=== PATIENT | female | born 1985 | race African-American/Black ===

== ENCOUNTER 2016-10-23 14:10 | Outpatient (CLI) | payer OTHER ==
[~2016-10-23] VITALS: Ht 162.6 cm; Wt 78.0 kg
[2016-10-23 14:33] VITALS: BP 101/56
[2016-10-23 15:32] VITALS: BP 103/63
--- NOTE | 2016-10-23 15:51 | IPNPDOC ---
Text Note Date of Service The patient was seen on 10/23/16 at 15:51. NOTE Subjective: Debbi is a 30yo with a woods IUP at 37w5d presenting to triage c/o cramping and spotting. She states she has had low abdominal cramping associated with abdominal tightening off and on since yesterday. She also notes increased discharge that today has become bloody, brownish, scant. ROS: Admits: adequate hydration, good movement Denies: fever, chills, loss of fluid, urinary symptoms Objective: VSS NST: FHT 140 with moderate variability, +accels, possible variable decel. Reactive NST. Regan: occasional ctx Physical Exam: General: WDWN gravid female in NAD Mental: A&Ox3 Abdomen: Gravid abdomen without tenderness in any quadrant. SCE (RN as business line controller) closed/50/-3 Assessment: Debbi is a 30yo with a woods IUP at 37w5d with no evidence of latent or active labor. Reassuring status with reactive NST with occasional CTXs. Plan: -f/u as scheduled in centering later this week -encouraged adequate hydration -Discussed labor precautions -return to L&D triage for any concerns -Medical reconciliation reviewed Dr. Beba Villagomez MD Staff Physician, Opal ARIAS, I+O Opal ALEMAN I+O Vital Signs Date Time Temp Pulse Resp B/P Pulse Ox O2 Delivery O2 Flow Rate FiO2 10/23/16 15:32 81 20 103/63 10/23/16 14:33 96.6 Room Air BEBA VILLAGOMEZ MD Oct 23, 2016 15:51
== END 2016-10-23 15:30 | disposition home or self-care (01) ==
LOC: M LDO 14:10
PROVIDERS: ATTEND Obstetrics & Gynecology
DX: O26.853 Spotting complicating pregnancy, third trimester (principal); Z3A.37 37 weeks gestation of pregnancy; N89.8 Other specified noninflammatory disorders of vagina; O26.893 Other specified pregnancy related conditions, third trimester

== ENCOUNTER 2016-10-25 07:37 | Outpatient (CLI) | payer OTHER ==
[~2016-10-25] VITALS: Ht 162.6 cm; Wt 77.0 kg
[2016-10-25] MEDS ORDERED: PRENTAB9 PO (08:52)
[2016-10-25] MEDS ORDERED: ACET50TA PO (08:52)
[2016-10-26] MEDS ORDERED: PRENTAB9 PO (00:57)
== END 2016-10-25 10:42 | disposition home or self-care (01) ==
LOC: M LDO 07:37
PROVIDERS: ATTEND Obstetrics & Gynecology
DX: O47.1 False labor at or after 37 completed weeks of gestation (principal); Z3A.38 38 weeks gestation of pregnancy

== ENCOUNTER 2016-10-26 | Inpatient (IN) | payer OTHER ==
[~2016-10-26] VITALS: Ht 162.6 cm; Wt 78.0 kg
[2016-10-26] VITALS (44 sets, daily range): BP systolic 94–127; BP diastolic 50–72
[~2016-10-26] MED LIST: ACET50TA PO; PRENTAB9 PO
[2016-10-26] MEDS ORDERED: PRENTAB9 PO (00:57)
[2016-10-26] MEDS ORDERED: LR 1,000 ML IV SCH ×2 (00:59→06:45)
[2016-10-26 01:07] LABS: MEAN CORPUSCULAR HEMOGLOBIN 26.5 pg (27.0-33.0); MEAN CORPUSCULAR HGB CONC 33.5 g/dl (32.0-36.5); MEAN CORPUSCULAR VOLUME 79.1 fl (80.0-96.0); RED CELL DISTRIBUTION WIDTH 15.2 % (11.5-14.5)
--- NOTE | 2016-10-26 01:20 | HPEPDOC ---
Obstetrical History & Physical General Date of Admission Oct 26, 2016 at 00:28 History of Present Illness 30 y/o at 38+1 for reg painful ctx's. Had called earlier and ctx's were q6 -8 min. I rec'd waiting, they are now q1-3 min persistently. No LOF or VB. Pos FM. Chief Complaint: Contractions, term Information Provided By: Patient Care Care: Good Care Dating Final EDC: Nov 08, 2016 Final EDC by: LMP, 1st trimester (US) Antepartum Course Diagnos(e)s GDMA1, moderate control Rh neg-rhogam [id number] Pos TB skin test [id number]. Neg CXR. (Received the vaccine in [facility] which gives a pos PPD every time). 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: No pertinent history, Spontaneous Past Medical History Surgical History: Dilation and curettage Family History Significant Family History: No pertinent family hx Social History Marital Status: Family situation: Spouse/partner home Psychosocial History: No pertinent psych hx * Smoker: non-smoker Alcohol: denies Drugs: denies Abuse Violence Screening Have you been hit/kicked/slapp: No Have you been sexually assault: No Imunizations Tdap status: current Influenza Status: current Allergies Coded Allergies: No Known Allergies (Unverified , 11/03/15) Medications Scheduled Multivitamins/ ( 27-0.8 mg) 1 Tab Tab 1 TAB PO DAILY Multivitamins/ ( 27-0.8 mg) 1 Tab Tab 900 TAB PO DAILY Scheduled PRN Acetaminophen (Mapap) 500 Mg Tab 650 MG PO Q4HP PRN PRN PAIN SCALE 1-5 Physical Examination Physical Examination GENERAL: Alert and oriented times three. BREAST: . ABDOMEN: Gravid and non-tender to touch. FETUS: Is vertex (VTX) by sterile vaginal examination (SVE), fetus is vertex ( VTX) by Jose Alberto. HEART RATE: Regular rate and rhythm. LUNGS: Clear to auscultation (CTA). EXTREMITIES: No edema. No clonus. Deep tendon reflexes (DTRs) + . Laboratory Data 24H LABS Laboratory Tests 2 10/26/16 00:32: Serology Scanned Report Hepatitis B Testing Urine Culture: No Growth Pertinent Laboratoy Data Blood Type: B- RBC Antibody Screen: Negative HIV: Negative Hepatitis B: Negative Hepatitis C: Unknown Rapid Plasma Reagin: Nonreactive Rubella: Immune Varicella: Immune Chlamydia/Gonorrhea: Negative Group B Streptococcus: Negative Quad Screen Test: Negative Cystic Fibrosis: Negative Glucose Tolerance Test: 143 (3 hr 109, 182, 171, 153) Anatomy Ultrasound Placenta Location: Anterior Normal Anatomy: Yes Placenta Previa: No Estimated Weight (grams): 3000 Vaginal Examination Dilation: 3 cm (loose 3m, was FT yesterday AM) Effacement: 40-50% Station: -2 Cervical Consistency: Soft Cervical Position: Middle Presentation: Cephalic presentation Position: Four quadrants Assessment Variability: Moderate Decelerations: Variable Tocometer Contractions: Yes Frequency: regular Assessment/Plan Assessment Presents to Labor and Delivery (L&D) with reg very painful ctx's. Has made exchange engineer 18 hrs from FT to 3-4 cm. Admitted for labor. Plan Admit and orient. Black Studies Professor and consent. Group B Streptococcus (GBS) neg. Labs and intravenous (IV) per unit protocol. Counseled on Pitocin as needed Lactated Ringers (LR): Bolus 1000 mL, then at 125 mL/hr. Anticipate normal sontaneous delivery () C-S as appropriate. plan on cx recheck ~[address] JO,EDWAR Logan MD Oct 26, 2016 01:20
[2016-10-26] MEDS ORDERED: FENTANYL 2MCG/ML ROPIVACAINE 0.2% NACL 250 ML CADD As Ordered ONE (01:42)
[2016-10-26] MEDS ORDERED: EPIDURAL/PCA KEYS XX PRN (02:20)
[2016-10-26] MEDS ORDERED: REFRIGERATOR IV KEYS XX PRN (02:20)
[2016-10-26] MEDS ORDERED: diphenhydrAMINE INJ 50MG/ML VIAL (J1200) IV PRN (02:20)
[2016-10-26] MEDS ORDERED: LACTATED RINGER'S 1000 ML IV PRN (02:20)
[2016-10-26] MEDS ORDERED: NALOXONE INJ 0.4 MG/1 ML VIAL (J2310) IV PRN ×3 (02:20→10:57)
[2016-10-26] MEDS ORDERED: ePHEDrine SULFATE 25 MG/5 ML(5MG/ML) SYRINGE IV PRN (02:20)
[2016-10-26] MEDS ORDERED: FENTANYL/ROPIVACAINE/NACL CADD 250 ML EPIDURAL SCH (02:20)
[2016-10-26] MEDS ORDERED: EPIDURAL COMMENT XX SCH (02:20)
[2016-10-26] MEDS ORDERED: ONDANSETRON 4MG/2ML VIAL (J2405) IV PRN ×3 (02:20→12:30)
[2016-10-26] MEDS ORDERED: OXYTOCIN 30 UNITS IN 0.9% NaCl 500ML IV BAG (J2590) As Ordered ONE (02:42)
--- NOTE | 2016-10-26 04:03 | IPNPDOC ---
Text Note Date of Service The patient was seen on 10/26/16 at 03:59. NOTE NST Cat 2, some early decels, a few with slow rtn to BL, however pos accels and mod variability throughout. One prolonged decel right after epidural placement ~1.5 hrs ago. All reviewed. Cx now 8cm/100/0 station/definitely SROM (can feel the hair), RN guesses SROM with decel/after epidural, small amts fluid since. Plan for recheck in 2 hrs, sooner prn. Sessions VS,Opal, I+O VS, Opal I+O Laboratory Tests 10/26/16 01:00 Red Blood Count 4.79, Mean Corpuscular Volume 79.1 L, Mean Corpuscular Hemoglobin 26.5 L, Mean Corpuscular Hemoglobin Concent 33.5, Red Cell Distribution Width 15.2 H Vital Signs Date Time Temp Pulse Resp B/P Pulse Ox O2 Delivery O2 Flow Rate FiO2 10/26/16 02:03 93 20 110/68 10/26/16 02:00 98 10/26/16 00:14 97.8 SESSIONS,EDWAR Logan MD Oct 26, 2016 04:03
--- NOTE | 2016-10-26 06:42 | IPNPDOC ---
Text Note Date of Service The patient was seen on 10/26/16 at 06:41. NOTE NST Cat 2 with early's and some variables, but pos acels and mod stephane persists. Ctx's starting to space. Cx C/C/+1, 40 min ago per RN was at 0 station. DIRK. Shift change in 30 min. Will start pitocin at 1 mu/min now and go up as necessary and start to push once nurses changes over. Sessions VS,Opal, I+O VSOpal I+O Laboratory Tests 10/26/16 01:00 Red Blood Count 4.79, Mean Corpuscular Volume 79.1 L, Mean Corpuscular Hemoglobin 26.5 L, Mean Corpuscular Hemoglobin Concent 33.5, Red Cell Distribution Width 15.2 H Vital Signs Date Time Temp Pulse Resp B/P Pulse Ox O2 Delivery O2 Flow Rate FiO2 10/26/16 06:25 82 18 98/55 10/26/16 06:09 98.1 10/26/16 02:20 100 SESSIONS,EDWAR Logan MD Oct 26, 2016 06:42
[2016-10-26] MEDS ORDERED: OXYTOCIN DRIP 30 UNITS in APPROPRIATE DILUENT 1 EA IV SCH (06:45)
[2016-10-26] MEDS ORDERED: BICITRA 30ML SOLN UDC As Ordered ONE (09:59)
[2016-10-26] MEDS ORDERED: ceFAZolin 2 GM/D5W 50 ML IV BAG (J0690) As Ordered ONE (09:59)
[2016-10-26] MEDS ORDERED: ACETAMINOPHEN 650 MG SUPP As Ordered ONE (10:09)
[2016-10-26] MEDS ORDERED: BUPIVACAINE HCL 0.25% 10 ML VIAL As Ordered ONE (10:09)
[2016-10-26] MEDS ORDERED: BUPIVACAINE HCL 0.25% 10 ML VIAL SC ONE (10:15)
[2016-10-26] MEDS ORDERED: ACETAMINOPHEN 650 MG SUPP PR ONE (10:15)
[2016-10-26] MEDS ORDERED: BICITRA 30ML SOLN UDC PO ONE (10:15)
[2016-10-26] MEDS ORDERED: OXYTOCIN INJ 10 UNITS/ML VIAL (J2590) As Ordered ONE ×3 (10:25)
[2016-10-26] MEDS ORDERED: PROPOFOL 200 MG/20 ML VIAL As Ordered ONE ×2 (10:30→11:11)
[2016-10-26] MEDS ORDERED: LIDOCAINE 2% INJ 100 MG/5 ML SDV (FOR ANES.) As Ordered ONE (10:30)
[2016-10-26] MEDS ORDERED: KETOROLAC 60 MG/2 ML VIAL (J1885) As Ordered ONE (10:38)
[2016-10-26] MEDS ORDERED: LIDOCAINE PRES-FREE 2% 10ML AMP As Ordered ONE ×2 (10:38)
[2016-10-26] MEDS ORDERED: ONDANSETRON 4MG/2ML VIAL (J2405) As Ordered ONE (10:38)
[2016-10-26] MEDS ORDERED: fentaNYL 100 MCG/2 ML INJECTION (J3010) As Ordered ONE (10:52)
[2016-10-26] MEDS ORDERED: MORPHINE PRES-FREE INJ 10 MG/10 ML VIAL (J2274) As Ordered ONE (10:55)
[2016-10-26 10:57] LABS: CORD GAS ABE V -5.6; CORD GAS HCO3 V 20.4 MEQ/L; CORD GAS O2 SAT V 62.5 %; CORD GAS PCO2 V 41.8 mmHg; CORD GAS PH V 7.307 UNITS; CORD GAS PO2 V 28.5 mmHg; CORD GAS SBC V 19.2 MEQ/L; CORD GAS TCO2 V 21.7 MEQ/L
[2016-10-26] MEDS ORDERED: NALBUPHINE HCL 10 MG/ML AMP (J2300) IV PRN ×2 (10:57→12:30)
[2016-10-26] MEDS ORDERED: METOCLOPRAMIDE INJ 10MG/2ML VIAL (J2765) IV PRN (10:57)
[2016-10-26 10:59] LABS: CORD GAS ABE A -2.2; CORD GAS HCO3 A 25.9 MEQ/L; CORD GAS O2 SAT A 35.2 %; CORD GAS PCO2 A 58.7 mmHg; CORD GAS PH A 7.262 UNITS; CORD GAS PO2 A 19.3 mmHg; CORD GAS SBC A 21.2 MEQ/L; CORD GAS TCO2 A 27.7 MEQ/L
[2016-10-26] MEDS ORDERED: MEPERIDINE 50 MG/ML 1ML VIAL (J2175) As Ordered ONE (11:29)
[2016-10-26] MEDS ORDERED: MEASLES,MUMPS,RUBELLA VACCINE INJ (MMR-II) (90707) SC SCH (12:00)
[2016-10-26] MEDS ORDERED: RHOGAM 300 MCG (1500 IU) INJ (J2790) IM SCH (12:00)
[2016-10-26] MEDS ORDERED: ANUSOL HC CREAM 30GM TOP PRN (12:00)
[2016-10-26] MEDS ORDERED: PERCOCET 5MG/325MG TAB PO PRN (12:00)
[2016-10-26] MEDS ORDERED: fentaNYL 100 MCG/2 ML INJECTION (J3010) IV PRN (12:30)
[2016-10-26] MEDS: PRENATAL VITAMIN TAB PO SCH (14:27)
[2016-10-26] MEDS: LR 1,000 ML IV SCH ×2 (15:00→20:55)
[2016-10-26] MEDS: PERCOCET 5MG/325MG TAB PO PRN (17:17)
[2016-10-26] MEDS: IBUPROFEN 800 MG TAB PO SCH (18:42)
[2016-10-27] MEDS: PERCOCET 5MG/325MG TAB PO PRN ×3 (01:43→16:42)
[2016-10-27 02:00] VITALS: BP 117/56
[2016-10-27] MEDS: LR 1,000 ML IV SCH ×3 (02:53→23:00)
[2016-10-27] MEDS: IBUPROFEN 800 MG TAB PO SCH ×3 (03:55→18:25)
[2016-10-27 06:00] VITALS: BP 98/54
--- NOTE | 2016-10-27 07:02 | IPN ---
DATE: 10/27/2016 This lady is a 2, now para 1, who had a primary section for persistent occiput posterior, failure to descend, and fully dilated for 4 hours. Delivered a live male weighing 7 pounds 13 ounces, 3544 grams, of 8 and 9 at one and five minutes respectively. Arterial pH 7.26 and base excess -2.2, venous pH 7.30 and base excess -5.6. Her admitting hemoglobin was 12.7, hematocrit 37.9 and platelets are 209. day #1 hemoglobin is pending. Her blood pressure today is 98/54, respirations are 18, pulse is 53 and temperature 96.8. She is presently sitting up in bed, doing well, holding the baby. Abdomen is soft. Uterus 2 below. Lochia is moderate. Incision is clean and dry. Chest is clear bilaterally to bases. Heart sounds are normal. No evidence of deep vein thrombosis (DVT), pulmonary embolus (PE) or superficial phlebitis. She is presently with Sanchez catheter being removed, is not complaining of any issues and is passing gas. Her plan of discharge is for tomorrow. She is Rh negative and will receive RhoGAM. The baby is to be evaluated by the physician assistant psychiatry. The patient is to have a 2-week checkup for incision check and at 6 weeks for check. control will be discussed at that time. In summary, we have a term gestation delivered by primary section of a live male .
[2016-10-27 07:44] LABS: MEAN CORPUSCULAR HEMOGLOBIN 26.6 pg (27.0-33.0); MEAN CORPUSCULAR HGB CONC 33.3 g/dl (32.0-36.5); RED CELL DISTRIBUTION WIDTH 16.3 % (11.5-14.5); WHITE BLOOD COUNT 10.5 K/mm3 (4.0-10.0)
[2016-10-27] MEDS: PRENATAL VITAMIN TAB PO SCH (08:52)
[2016-10-27 10:00] VITALS: BP 107/58
[2016-10-27 14:00] VITALS: BP 102/53
[2016-10-27 18:00] VITALS: BP 107/56
[2016-10-27 22:03] VITALS: BP 113/60
[2016-10-28] MEDS: PERCOCET 5MG/325MG TAB PO PRN (00:50)
[2016-10-28] MEDS: IBUPROFEN 800 MG TAB PO SCH ×2 (03:00→11:30)
[2016-10-28 06:07] VITALS: BP 122/74
[2016-10-28] MEDS: PRENATAL VITAMIN TAB PO SCH (08:01)
[2016-10-28] MEDS ORDERED: IBUP-1114 PO (10:33)
[2016-10-28] MEDS ORDERED: OXYC1TAB23 PO (10:35)
--- NOTE | 2016-11-06 16:26 | RO ---
DATE OF PROCEDURE: 10/27/2016 PREPROCEDURE DIAGNOSIS: Persistent occiput posterior transverse arrest, failure to descend. POSTPROCEDURE DIAGNOSIS: Persistent occiput posterior transverse arrest, failure to descend. OPERATION PROPOSED: Primary section. OPERATION PERFORMED: Primary section. SURGEON: Dmitri Reed MD SOFTWARE CLERK: Dr. Ireland ANESTHESIA: Spinal plus local anesthetic for intraperitoneal procedures. ESTIMATED BLOOD LOSS: 500 mL HISTORY: This lady is 1, para 0 who had been pushing for 4 hours in the persistent occiput posterior (POP) position mostly deflexed with a moderate amount of molding and failure to descend, failure to progress. After deep discussion with the patient, her and the fact is that waiting any longer would not effectively allow any further descent and with prolonged operative procedure as well as possibly cause some distress, they agreed and understood the risks and benefits of section including hemorrhage, infection, perforation, , reoperation. Therefore a preoperative diagnosis was failure to descend, persistent occiput posterior. Postoperative diagnosis was failure to descend, persistent occiput posterior, deflexed OP. Operation performed was primary section. DESCRIPTION OF PROCEDURE: Under adequate anesthesia, prepped and draped in the supine position, a Sanchez catheter in the bladder draining clear urine. Sequential on board. Antibiotics on board. Preop acetaminophen suppository 1300 mg per rectum, Sanchez catheter in the bladder. Adequate time-out a. Low transverse incision was made into the skin passing through abdominal layers securing hemostasis. Opening into the peritoneal cavity we reflected the bladder well down anteriorly. A low transverse incision was made into the uterine body, which was quite thinned indicating that this lady had been laboring for a persistent period of time. On opening the uterine cavity, the baby was completely effaced up deflex. We were able to scoop out the baby with extended molding. Delivered a live weighing 6 pounds 13 ounces, 3844 grams, of 8 and 9 in one and five minutes respectively. Placenta was manually removed after arterial and venous pH. The placenta came away easily. The uterine cavity was swept until it was clean. The uterus contracted well down on Pitocin. The lower segment was closed in two layers with an imbricating layer of the second layer. Reperitonealization was performed. With instrument and pad count correct, the excess blood clots were removed. The abdomen was then closed with running stitch for the peritoneum. Interrupted loose stitch used to place the muscles back together and the fascia was closed with #0 Vicryl. Irrigation of the wound site was done with saline. There were a few interrupted #2-0 Vicryls placed to close the fat tissue and close the space and then a subcuticular stitch with Monocryl #3-0 was done. With that done and instrument and pad count correct, local anesthetic for intraperitoneal procedures was done, 10 mL Marcaine 0.25% spray applied in a Telfa and the patient was taken to recovery in good condition.
== END 2016-10-28 12:55 | disposition home or self-care (01) | DRG 766 ==
LOC: M LDO → M LDI 00:28 → M OBS 14:03
PROVIDERS: ADMIT Obstetrics & Gynecology; ATTEND Obstetrics & Gynecology
PROC: 10D00Z1 Extraction of Products of Conception, Low, Open Approach (ICD-10-PCS; principal; 2016-10-27)
DX: O32.4XX0 Maternal care for high head at term, not applicable or unspecified (principal); Z37.0 Single live birth; Z3A.38 38 weeks gestation of pregnancy; O64.0XX0 Obstructed labor due to incomplete rotation of fetal head, not applicable or unspecified; O76 Abnormality in fetal heart rate and rhythm complicating labor and delivery

== ENCOUNTER 2016-11-02 12:14 | Inpatient (IN) | payer OTHER ==
[~2016-11-02] VITALS: Ht 162.6 cm; Wt 78.9 kg
[~2016-11-02 12:14] MED LIST changes: +IBUP-1114 PO; +OXYC1TAB23 PO
[2016-11-02] MEDS ORDERED: ONDANSETRON 4MG/2ML VIAL (J2405) IV PRN (12:30)
[2016-11-02] MEDS ORDERED: MORPHINE 2 MG/ML 1ML SYRINGE IV PRN (12:30)
[2016-11-02 13:00] VITALS: BP 133/73
[2016-11-02 13:41] LABS: BASO % 0.2 % (0.0-1.0); EOS # 0.1 K/mm3 (0.0-0.50); EOS % 0.7 % (0.0-3.0); LARGE UNSTAINED CELL # 0.2 K/mm3 (0.0-0.4); LARGE UNSTAINED CELL % 1.5 % (0.0-4.0); MEAN CORPUSCULAR HEMOGLOBIN 25.5 pg (27.0-33.0); MEAN CORPUSCULAR HGB CONC 31.2 g/dl (32.0-36.5); MEAN CORPUSCULAR VOLUME 81.7 fl (80.0-96.0); MONO # 0.4 K/mm3 (0.0-0.8); MONO % 2.6 % (0.0-5.0); NEUTROPHILS # 12.9 K/mm3 (1.8-7.7); PLATELET COUNT, AUTOMATED 378 k/mm3 (150-450); RED CELL DISTRIBUTION WIDTH 14.6 % (11.5-14.5); WHITE BLOOD COUNT 14.7 K/mm3 (4.0-10.0)
[2016-11-02] MEDS: NS 1,000 ML IV SCH ×2 (13:45→20:23)
[2016-11-02] MEDS: IBUPROFEN 600 MG TAB PO SCH ×3 (13:45→23:04)
[2016-11-02] MEDS: CLINDAMYCIN 600 MG in APPROPRIATE DILUENT 1 EA IV SCH ×2 (13:45→18:02)
[2016-11-02] MEDS: CEPHALEXIN 500 MG CAP PO SCH ×3 (13:46→23:03)
[2016-11-02] MEDS: PERCOCET 5MG/325MG TAB PO PRN ×2 (13:46→18:02)
[2016-11-02 13:51] LABS: ALBUMIN 2.3 GM/DL (3.2-5.2); ALBUMIN/GLOBULIN RATIO 0.58 (1.00-1.93); ALKALINE PHOSPHATASE 114 U/L (45-117); ALT/SGPT 19 U/L (12-78); ANION GAP 10 MEQ/L (8-16); AST/SGOT 15 U/L (15-37); BILIRUBIN,TOTAL 0.4 MG/DL (0.2-1.0); BLOOD UREA NITROGEN 11 MG/DL (7-18); CALCIUM LEVEL 8.8 MG/DL (8.5-10.1); CARBON DIOXIDE LEVEL 26 MEQ/L (21-32); CHLORIDE LEVEL 105 MEQ/L (98-107); CREATININE FOR GFR 0.75 MG/DL (0.55-1.02); GLOMERULAR FILTRATION RATE > 60.0 (>60); GLUCOSE, FASTING 97 MG/DL (70-105); POTASSIUM SERUM 4.2 MEQ/L (3.5-5.1); SODIUM LEVEL 141 MEQ/L (136-145); TOTAL PROTEIN 6.3 GM/DL (6.4-8.2)
[2016-11-02] MEDS ORDERED: MEDE1CRE TOP (14:46)
[2016-11-02] MEDS ORDERED: DOCU100C PO (14:46)
[2016-11-02] MEDS ORDERED: TYLE325T5 PO (14:46)
[2016-11-02 18:00] VITALS: BP 119/68
[2016-11-02 22:00] VITALS: BP 122/77
[2016-11-03] MEDS: CLINDAMYCIN 600 MG in APPROPRIATE DILUENT 1 EA IV SCH ×4 (01:43→18:49)
[2016-11-03] MEDS: PERCOCET 5MG/325MG TAB PO PRN (04:01)
[2016-11-03 06:00] VITALS: BP 123/74
[2016-11-03] MEDS: NS 1,000 ML IV SCH ×3 (06:03→23:07)
[2016-11-03] MEDS: IBUPROFEN 600 MG TAB PO SCH ×4 (06:04→23:07)
[2016-11-03] MEDS: CEPHALEXIN 500 MG CAP PO SCH ×4 (06:04→23:07)
[2016-11-03 09:30] VITALS: BP 127/83
[2016-11-03 11:30] VITALS: BP 118/86
[2016-11-03 14:00] VITALS: BP 124/77
[2016-11-03 18:00] VITALS: BP 120/76
[2016-11-03 22:00] VITALS: BP 128/82
[2016-11-04] VITALS (7 sets, daily range): BP systolic 120–131; BP diastolic 71–76
[2016-11-04] MEDS: CLINDAMYCIN 600 MG in APPROPRIATE DILUENT 1 EA IV SCH ×2 (01:48→06:16)
[2016-11-04] MEDS: PERCOCET 5MG/325MG TAB PO PRN ×3 (01:49→16:44)
[2016-11-04] MEDS: NS 1,000 ML IV SCH ×3 (06:16→20:23)
[2016-11-04] MEDS: IBUPROFEN 600 MG TAB PO SCH ×3 (06:16→18:00)
[2016-11-04] MEDS: CEPHALEXIN 500 MG CAP PO SCH (06:17)
[2016-11-04 08:39] LABS: MEAN CORPUSCULAR HEMOGLOBIN 25.1 pg (27.0-33.0); RED CELL DISTRIBUTION WIDTH 15.1 % (11.5-14.5)
[2016-11-04] MEDS ORDERED: GASTROGRAFIN SOLUTION 30ML (Q9963) PO ONE (11:15)
[2016-11-04] MEDS ORDERED: GASTROGRAFIN SOLUTION 30ML PO ONE (11:45)
[2016-11-04] MEDS ORDERED: ISOVUE-370 76% 100ML VIAL (Q9967) As Ordered ONE (12:20)
[2016-11-04] MEDS: TRIMETHOPRIM/SULFAMETHOXAZOLE 160 MG in D5W 500 ML IV SCH ×2 (12:25→18:00)
--- NOTE | 2016-11-04 15:06 | REP ---
CT STUDY OF THE ABDOMEN AND PELVIS WITH IV AND ORAL CONTRAST: HISTORY: Status post with probable abscess. Purulent drainage. Lower abdominal pain. Comparison study August 23, 2015. CT contrast dose: 100 mL of Isovue 370 is administered intravenously. FINDINGS: Digital export packer radiograph shows central abdominal small bowel loops which are air filled and somewhat dilated. CT images show small bilateral pleural effusions and course bilateral lower lobe subsegmental and plate-like atelectatic changes. There is evidence of mild fatty infiltration of the liver. The gallbladder and spleen are unremarkable. No pancreatic abnormality is seen. No adrenal lesion is observed on either side. Kidneys enhance symmetrically and are morphologically intact. No retroperitoneal abnormality is seen. uterus is quite enlarged. There is some endometrial air. There is myometrial air at the lower uterine segment at the uterine incision level. Urinary bladder appears intact. There is some thickening of the distal rectus abdominis muscles and there is a small quantity of incisional air in the Pfannenstiel incision plane in the lower abdominal wall. No abscess is seen. There is an ileus pattern in the bowel gas with a few loops of air-filled and somewhat dilated small bowel in the central abdomen. Air and stool is seen in a nondistended colon including the rectum. IMPRESSION: Postop thickening of the distal rectus abdominis muscles and a few bubbles of incisional air in the incision in the lower uterine segment as well as the lower abdominal wall. A small quantity of air is seen in the endometrium. No abscess is seen. Signed by Mahendra Bingham MD 11/04/2016 04:01 P
[2016-11-04] MEDS ORDERED: BUPIVACAINE HCL 0.5% 30 ML VIAL As Ordered ONE (18:05)
[2016-11-04] MEDS ORDERED: ceFAZolin 2 GM/D5W 50 ML IV BAG (J0690) As Ordered ONE (18:05)
[2016-11-04] MEDS ORDERED: fentaNYL 100 MCG/2 ML INJECTION (J3010) As Ordered ONE ×3 (19:05→20:46)
[2016-11-04] MEDS ORDERED: MIDAZOLAM INJ 2 MG/2 ML VIAL (J2250) As Ordered ONE (19:05)
[2016-11-04] MEDS ORDERED: BUPIVACAINE HCL 0.5% 30 ML VIAL SC ONE (19:12)
[2016-11-04] MEDS ORDERED: SEVOFLURANE INHAL SOLN 250 ML BTL As Ordered ONE (19:20)
[2016-11-04] MEDS ORDERED: ROCURONIUM BROMIDE 50 MG/5 ML VIAL As Ordered ONE (19:21)
[2016-11-04] MEDS ORDERED: SUCCINYLCHOLINE 100 MG/5 ML SYRINGE (J0330) As Ordered ONE (19:21)
[2016-11-04] MEDS ORDERED: PROPOFOL 200 MG/20 ML VIAL As Ordered ONE (19:22)
[2016-11-04] MEDS ORDERED: GLYCOPYRROLATE INJ 0.2 MG/ML 2 ML VIAL As Ordered ONE (19:22)
[2016-11-04] MEDS ORDERED: LIDOCAINE 2% INJ 100 MG/5 ML SDV (FOR ANES.) As Ordered ONE (19:22)
[2016-11-04] MEDS ORDERED: ONDANSETRON 4MG/2ML VIAL (J2405) As Ordered ONE (19:22)
[2016-11-04] MEDS ORDERED: NEOSTIGMINE 1MG/ML 5 ML SYRINGE (J2710) As Ordered ONE (19:22)
[2016-11-04] MEDS ORDERED: METOCLOPRAMIDE INJ 10MG/2ML VIAL (J2765) As Ordered ONE (19:22)
[2016-11-04] MEDS ORDERED: HYDROmorphone HCL 2 MG/ML 1ML VIAL (J1170) As Ordered ONE (19:28)
[2016-11-04] MEDS ORDERED: DESFLURANE 240 ML INHALANT As Ordered ONE (20:12)
[2016-11-04] MEDS ORDERED: NALBUPHINE HCL 10 MG/ML AMP (J2300) IV PRN (20:45)
[2016-11-04] MEDS ORDERED: EPIDURAL/PCA KEYS XX PRN (20:45)
[2016-11-04] MEDS ORDERED: NALOXONE INJ 0.4 MG/1 ML VIAL (J2310) IV PRN (20:45)
[2016-11-04] MEDS: fentaNYL 100 MCG/2 ML INJECTION (J3010) IV PRN ×4 (20:49→21:07)
[2016-11-04] MEDS ORDERED: MORPHINE PCA 1MG/ML 100ML CADD As Ordered ONE (20:58)
[2016-11-04] MEDS ORDERED: KETOROLAC 30 MG/ML VIAL (J1885) As Ordered ONE (21:00)
[2016-11-04] MEDS: MORPHINE PCA 1MG/ML 100ML CADD IV PRN ×2 (21:19→21:20)
[2016-11-04] MEDS ORDERED: PERCOCET 5MG/325MG TAB PO PRN (21:30)
[2016-11-04] MEDS ORDERED: KETOROLAC 30 MG/ML VIAL (J1885) IV PRN (21:30)
[2016-11-04] MEDS ORDERED: LR 1,000 ML IV SCH (21:30)
[2016-11-04] MEDS ORDERED: ONDANSETRON 4MG/2ML VIAL (J2405) IV PRN (21:30)
[2016-11-04] MEDS ORDERED: PERCOCET 5MG/325MG TAB As Ordered ONE (22:01)
[2016-11-05] VITALS (9 sets, daily range): BP systolic 122–132; BP diastolic 68–84
[2016-11-05] MEDS: GENTAMICIN 80 MG in APPROPRIATE DILUENT 1 EA IV SCH ×4 (00:05→22:05)
[2016-11-05] MEDS ORDERED: MIRALAX *UNIT DOSE* 17GM PACKET PO PRN (00:15)
[2016-11-05] MEDS: DOCUSATE SODIUM 100 MG CAP PO SCH ×3 (01:04→19:55)
[2016-11-05] MEDS: NS 1,000 ML IV SCH ×3 (04:18→20:32)
[2016-11-05] MEDS: IBUPROFEN 600 MG TAB PO SCH ×4 (06:06→19:55)
[2016-11-05 06:39] LABS: BASO % 0.6 % (0.0-1.0); EOS # 0.1 K/mm3 (0.0-0.50); EOS % 1.4 % (0.0-3.0); LARGE UNSTAINED CELL # 0.3 K/mm3 (0.0-0.4); LARGE UNSTAINED CELL % 3.7 % (0.0-4.0); LYMPH # 1.3 K/mm3 (1.5-4.5); LYMPH % 14.6 % (24.0-44.0); MEAN CORPUSCULAR HGB CONC 30.7 g/dl (32.0-36.5); MEAN CORPUSCULAR VOLUME 81.5 fl (80.0-96.0); MONO # 0.4 K/mm3 (0.0-0.8); MONO % 4.4 % (0.0-5.0); NEUTROPHILS # 6.5 K/mm3 (1.8-7.7); NEUTROPHILS % 75.4 % (36.0-66.0); PLATELET COUNT, AUTOMATED 447 k/mm3 (150-450); RED CELL DISTRIBUTION WIDTH 14.8 % (11.5-14.5); WHITE BLOOD COUNT 8.6 K/mm3 (4.0-10.0)
[2016-11-05] MEDS: diphenhydrAMINE INJ 50MG/ML VIAL (J1200) IV PRN ×3 (08:47→22:05)
--- NOTE | 2016-11-05 08:58 | RO ---
DATE OF PROCEDURE: 11/04/2016 PREOPERATIVE DIAGNOSIS: 1) PLTCS 2) Cellulitis r/o abscess POSTOPERATIVE DIAGNOSIS: 1) PLTCS 2) Cellulitis 3) Necrotic tissue PROCEDURE PERFORMED: 1) Evaluation under anesthesia 2) Debridement 3) Evaluation and debridement, tissue closure 4) Wound VAC placement. SURGEON: Kye Mclain MD OIL FILTERS INSPECTOR: Liz Avendano MD ANESTHESIA: General Anesthesia provider: MARCO The patient is a 31-year-old 1, para 1, now postop day 9 from primary low transverse section as well as hospital day 3 from readmission for concern for cellulitis. The patient was previously on antibiotics that were changed due to recent wound culture results. The patient underwent a CT of the abdomen and pelvis with contrast this day that demonstrated no appreciable fascial defect and no outright abscess. However, with clinical presentation of significant induration, acute pinpoint pain along the surgical site as well as inability to tolerate exam and purulent drainage continued to be noted, decision made was made to take the patient to the operating room for exam under anesthesia and presumed washout. The patient and spouse had risks, benefits, alternatives, indications reviewed extensively to include possible need for further procedure as well as possible blood transfusion. After the patient was appropriately prepped and draped, the Pfannenstiel skin incision was opened with noticed copious purulent drainage throughout with significant induration and significant edematous angry tissue; however no specific abscess was noted. Induration was noted along the mons pubis inferior to the Pfannenstiel skin incision. Significant pus was noted to be draining out through this area. These small loculations of pus were broken up and drained. The fascia was notably edematous and the edges were noted to up to 1cm. The suture for the fascia was taken down carefully and removed. No specific bleeding was appreciated. Purulent drainage noted to be oozing from all areas of the fascial incision, along all subcutaneous tissue, as well as along the edges of the rectus muscle. The rectus muscle appeared to have been previously transected, at least half away across on both the right and left halves of the rectus abdominis that did not appear to be reapproximated. There were edges of this that did not contract with Bovie stimulation and appeared dark and dusky in nature. The suture holding the peritoneum was noted and removed carefully. With careful dissection with Bovie as well as with Radha clamps, the tissue edges were able to be and again noticed pus draining there. The intestines however appeared to be normal in nature. There was noted to be no large fluid/blood/pus collection noted within the pelvic and abdominal cavities. The uterus was appreciated and brought through the fascial opening and noted to be intact along the hysterotomy. A small approximately 1 mm segment, along the right aspect of the hysterectomy wall not opened was reinforced with a figure-of-8 #0 Vicryl stitch. Hemostatic after this. Uterus appeared to be 10 weeks or so in size. At this point, due to the above findings, consulted general surgery. Dr. Morejon presented to the OR and scrubbed into the case to assist. During this time, with noted above findings, nursing was able to appropriately place a Sanchez catheter for drainage of the bladder. No appreciable defect of the bladder edge was appreciated. Minimal debridement of the fascia was done. No sharp debridement or Bovie debridement of the rectus abdominis was performed. A mass closure incorporating aspect of the peritoneum as well as the rectus and fascia , as well as the superior fascia were performed in figure-of-8 and single interrupted with #0 Vicryl stitch. These edges were brought together. At the completion of the mass closure it was felt to have appropriately closed the fascia. A wound VAC was then appropriately placed per cannoneer guidelines and noticed an appropriate seal. Prior to the beginning of surgery, 2 gram of Ancef were run in a routine fashion. The patient was also currently undergoing Bactrim IV treatment per wound culture results. At this point, lap, needle and sponge counts were correct times three. The patient was taken to the postanesthesia care unit (PACU) in stable condition with wound VAC appropriately working. Clinton Mclain OB-THERAPIST RRT RONNIE
[2016-11-05] MEDS: MORPHINE PCA 1MG/ML 100ML CADD IV PRN (09:42)
[2016-11-06] MEDS: IBUPROFEN 600 MG TAB PO SCH ×4 (00:05→17:15)
[2016-11-06 02:00] VITALS: BP 118/75
[2016-11-06] MEDS: MORPHINE PCA 1MG/ML 100ML CADD IV PRN (02:29)
[2016-11-06] MEDS: NS 1,000 ML IV SCH (04:02)
[2016-11-06] MEDS: GENTAMICIN 80 MG in APPROPRIATE DILUENT 1 EA IV SCH ×3 (05:27→22:13)
[2016-11-06 06:00] VITALS: BP 128/77
[2016-11-06] MEDS: DOCUSATE SODIUM 100 MG CAP PO SCH ×2 (07:52→22:12)
[2016-11-06 10:00] VITALS: BP 128/65
[2016-11-06 12:00] VITALS: BP 129/74
[2016-11-06] MEDS ORDERED: MORPHINE 2 MG/ML 1ML SYRINGE IV PRN (14:45)
[2016-11-06] MEDS ORDERED: PERCOCET 5MG/325MG TAB PO PRN (15:00)
[2016-11-06 15:16] LABS: BASO % 0.3 % (0.0-1.0); EOS # 0.2 K/mm3 (0.0-0.50); LARGE UNSTAINED CELL # 0.3 K/mm3 (0.0-0.4); LYMPH # 1.6 K/mm3 (1.5-4.5); LYMPH % 12.9 % (24.0-44.0); MEAN CORPUSCULAR HEMOGLOBIN 24.7 pg (27.0-33.0); MEAN CORPUSCULAR HGB CONC 30.4 g/dl (32.0-36.5); MEAN CORPUSCULAR VOLUME 81.4 fl (80.0-96.0); MONO # 0.4 K/mm3 (0.0-0.8); MONO % 3.5 % (0.0-5.0); NEUTROPHILS # 9.9 K/mm3 (1.8-7.7); NEUTROPHILS % 79.3 % (36.0-66.0); PLATELET COUNT, AUTOMATED 465 k/mm3 (150-450); RED CELL DISTRIBUTION WIDTH 14.8 % (11.5-14.5); WHITE BLOOD COUNT 12.5 K/mm3 (4.0-10.0)
[2016-11-06 18:00] VITALS: BP 130/72
[2016-11-06] MEDS: PERCOCET 5MG/325MG TAB PO SCH ×2 (18:15→20:59)
[2016-11-06 22:00] VITALS: BP 122/73
[2016-11-07] VITALS (9 sets, daily range): BP systolic 124–144; BP diastolic 66–87
[2016-11-07] MEDS: IBUPROFEN 600 MG TAB PO SCH ×4 (00:02→19:58)
[2016-11-07] MEDS: NS 1,000 ML IV SCH ×3 (00:03→16:00)
[2016-11-07] MEDS: PERCOCET 5MG/325MG TAB PO SCH ×5 (04:51→16:00)
[2016-11-07] MEDS: GENTAMICIN 80 MG in APPROPRIATE DILUENT 1 EA IV SCH (06:18)
[2016-11-07 08:38] LABS: BASO % 0.2 % (0.0-1.0); EOS # 0.3 K/mm3 (0.0-0.50); LARGE UNSTAINED CELL # 0.2 K/mm3 (0.0-0.4); LARGE UNSTAINED CELL % 2.5 % (0.0-4.0); LYMPH # 1.8 K/mm3 (1.5-4.5); LYMPH % 16.8 % (24.0-44.0); MEAN CORPUSCULAR HEMOGLOBIN 25.2 pg (27.0-33.0); MEAN CORPUSCULAR HGB CONC 31.2 g/dl (32.0-36.5); MEAN CORPUSCULAR VOLUME 80.8 fl (80.0-96.0); MONO # 0.4 K/mm3 (0.0-0.8); MONO % 3.8 % (0.0-5.0); NEUTROPHILS # 6.8 K/mm3 (1.8-7.7); NEUTROPHILS % 73.7 % (36.0-66.0); PLATELET COUNT, AUTOMATED 501 k/mm3 (150-450); RED CELL DISTRIBUTION WIDTH 15.4 % (11.5-14.5); WHITE BLOOD COUNT 9.2 K/mm3 (4.0-10.0)
[2016-11-07] MEDS: DOCUSATE SODIUM 100 MG CAP PO SCH ×2 (09:00→19:59)
[2016-11-07] MEDS ORDERED: GENTAMICIN 100 MG in APPROPRIATE DILUENT 1 EA IV SCH ×3 (11:30→14:00)
[2016-11-07 14:48] LABS: ANION GAP 9 MEQ/L (8-16); BLOOD UREA NITROGEN 4 MG/DL (7-18); CALCIUM LEVEL 8.5 MG/DL (8.5-10.1); CARBON DIOXIDE LEVEL 24 MEQ/L (21-32); CHLORIDE LEVEL 111 MEQ/L (98-107); CREATININE FOR GFR 0.79 MG/DL (0.55-1.02); GLOMERULAR FILTRATION RATE > 60.0 (>60); GLUCOSE, FASTING 73 MG/DL (70-105); POTASSIUM SERUM 3.8 MEQ/L (3.5-5.1); SODIUM LEVEL 144 MEQ/L (136-145)
[2016-11-07] MEDS ORDERED: ceFAZolin 1GM INJ (J0690) As Ordered ONE (16:00)
[2016-11-07] MEDS ORDERED: ONDANSETRON 4MG/2ML VIAL (J2405) As Ordered ONE (16:42)
[2016-11-07] MEDS ORDERED: PROPOFOL 200 MG/20 ML VIAL As Ordered ONE (16:42)
[2016-11-07] MEDS ORDERED: fentaNYL 250 MCG/5 ML INJECTION (J3010) As Ordered ONE (16:42)
[2016-11-07] MEDS ORDERED: MIDAZOLAM INJ 2 MG/2 ML VIAL (J2250) As Ordered ONE (16:42)
[2016-11-07] MEDS ORDERED: METOCLOPRAMIDE INJ 10MG/2ML VIAL (J2765) As Ordered ONE (16:42)
[2016-11-07] MEDS ORDERED: LIDOCAINE 2% INJ 100 MG/5 ML SDV (FOR ANES.) As Ordered ONE (16:43)
[2016-11-07] MEDS ORDERED: HYDROmorphone HCL 2 MG/ML 1ML VIAL (J1170) As Ordered ONE (16:57)
--- NOTE | 2016-11-07 17:05 | CR ---
DATE OF CONSULTATION: 11/07/2016 CONSULTATION REPORT FOR: Dr. Dmitri Reed. REASON FOR CONSULTATION: For evaluation of postoperative wound infection. HISTORY OF PRESENT ILLNESS: Debbi is a pleasant 31-year-old female from [facility] who had a section for failure to progress on 10/26/2016, after she was fully dilated for four hours. She delivered a healthy baby with no complication. The patient did well, went home, and developed increasing pain with cellulitis of the abdominal wall. The abdominal wall was very indurated. She had a lot of purulent drainage. The patient was started on antibiotics on 11/02/2016 when she was admitted. She was started on cephalexin 500 mg every six hours, IV clindamycin 600 mg every eight hours. Wound culture was done which had a few Klebsiella, heavy Staphylococcus coagulase negative, heavy Enterococcus faecalis, which that was a culture that was done at the bedside through the abdominal incision. After culture results were obtained on 11/04/2016, she was switched to Bactrim. She received one dose and then switched to IV gentamicin. The patient has improved. Temperature on admission was 100.9, currently maximum temperature (T-max) is 99.7. She was taken back to the operating room for wound exploration and hopefully closure of the fascia that had completely dehisced. She has had a wound vacuum-assisted closure (VAC) for the past five days. The patient has had a lot of anxiety. She has not been ambulating. On admission, her white count was 14.7, today it was 9.2. She denies any nausea, vomiting, or diarrhea. PAST MEDICAL HISTORY: Unrevealing. She had a partial molar at eight weeks of gestation in November 2015. She has no history of diabetes, high blood pressure, or heart disease but she does have a heart murmur that she is not aware of. PAST SURGICAL HISTORY: section on 10/26/[address] Reed. REVIEW OF SYSTEMS: The patient denies any nausea, vomiting, diarrhea, upper or lower extremity weakness. No headache or neck stiffness. No dysuria or hematuria. No flank pain. She does complain of pain in the abdominal area where the incision is. She has a lot of anxiety. She has not been very ambulatory either. SOCIAL HISTORY: She is to her who is active , who is supposed to deploy in three weeks. She does not smoke or drink. This is their first baby. PHYSICAL EXAMINATION: On physical examination, temperature is 99.7, pulse 75, respirations 16, blood pressure 124/78, oxygen saturation 97% on room air. HEART: Normal S1, S2 with a systolic ejection murmur 2/6, best heard at the left upper sternal border. LUNGS: Clear. No wheezes, rales, or rhonchi. ABDOMEN: Soft, tender in the suprapubic area where the incision is. There is a wound VAC in place. There is some induration along the mons pubis. The wound was not seen as the wound VAC was still in place and the patient was going to the operating room as I was examining her. EXTREMITIES: No clubbing, cyanosis, or edema. No calf tenderness. NEUROLOGIC: Examination grossly normal. LABORATORY DATA: Gentamicin peak was 5, trough was 1. White count today is 9.2, hemoglobin 10.1, hematocrit 32.4, platelets 501. ESR is 63. Sodium 144, potassium 3.8, chloride 111, bicarbonate 24, BUN 4, creatinine 0.8, glucose 73, calcium 8.5, CRP 9.5, TSH 0.915. Wound culture had Klebsiella pneumoniae resistant to ampicillin, Staphylococcus coagulase negative methicillin-resistant Enterococcus faecalis resistant to tetracycline and erythromycin. Blood cultures, two sets were no growth after five days. Urine culture was negative. IMPRESSION: A 31-year-old female with no significant past medical history who had a (C) section after prolonged labor and was admitted with a postoperative wound infection within a week. The patient has a polymicrobial infection. According to the surgeons, there was no evidence of bowel perforation. She has been treated with different antibiotics. I would suggest switching her to IV Zosyn. PLAN: Patient going to the operating room (OR) today for reexploration and hopefully closure of the fascia. Discontinue IV gentamicin and switch to Zosyn 3.375 grams IV every six hours. Repeat intraoperative wound cultures from deep tissue and send for aerobic as well as anaerobic culture. Zosyn will cover anaerobes that have not been cultured on admission as well as Enterococcus and Klebsiella, Staphylococcus coagulase negative probably does not need to be treated as it is most likely a skin contaminant. Thank you for the consultation. Further antibiotic management will depend on progression and healing and the results of intraoperative culture.
[2016-11-07] MEDS ORDERED: ONDANSETRON 4MG/2ML VIAL (J2405) IV PRN (18:00)
[2016-11-07] MEDS ORDERED: fentaNYL 100 MCG/2 ML INJECTION (J3010) IV PRN (18:00)
[2016-11-07] MEDS ORDERED: METOCLOPRAMIDE INJ 10MG/2ML VIAL (J2765) IV PRN (18:00)
[2016-11-07] MEDS ORDERED: HYDROmorphone HCL 1 MG/ML SYRINGE (J1170) IV PRN (18:00)
[2016-11-07] MEDS ORDERED: LR 1,000 ML IV SCH (18:00)
[2016-11-07] MEDS: PIPERACILLIN/TAZOBACTAM SOD 3.375 GM in D5W MINI-BAG PLUS 50 ML IV SCH (19:59)
--- NOTE | 2016-11-07 21:11 | RO ---
DATE OF PROCEDURE: 11/07/2016 PREPROCEDURE DIAGNOSIS: POSTPROCEDURE DIAGNOSIS: PROCEDURE: SURGEON: Kye Mclain MD PUBLIC ADDRESS SYSTEM MECHANIC SURGEON: Dmitri Reed MD CONSULT SURGEON: Dr. Morejon, General Surgeon PUBLIC ADDRESS SYSTEM MECHANIC: ANESTHESIA: MACHINE TENDER, general. IV FLUID: 500 mL isotonic fluid. ESTIMATED BLOOD LOSS: Minimal. URINE OUTPUT: Voided prior to operating room (OR). INDICATION FOR SURGERY: The patient is a 31-year-old now postoperative day #3 from first take back for infection from primary section on 10/26/2016. Had wound VAC in place. Indication for surgery this day, evaluation under anesthesia, wound debridement if necessary, evaluation and further closure if warranted, wound VAC replacement. The risks, benefits, indications, alternatives were reviewed with the patient and informed consent was obtained. DESCRIPTION OF PROCEDURE: The patient was taken back to the operating room where general anesthesia was found to be adequate. The patient was then prepped and draped in a sterile fashion in a normal supine position. Wound VAC was removed. After a time out was performed, complete evaluation of the surgical site was noted with fascia appearing grossly intact. This was confirmed with Dr. Morejon, General Surgeon, who assisted with mass closure on previous surgical day. No recommendations from Dr. Morejon to further attempt to close fascia. Anaerobic and aerobic cultures were obtained from wound at this time. No noted seepage or pus appreciated. Beefy red tissue grossly noted in the vast majority of surgical space. Slight areas of less well vitalized tissue noted along the left upper aspect of where mass closure was performed as well as inferior to the Pfannenstiel incision. However, recommendations from Dr. Morejon not to debride this and further utilize healing effect from wound VAC. Wound VAC replaced in routine fashion per vp customer service's guidelines, reset with continuation suction at 75 mmHg. Good suction noted and seal of wound VAC at time of completion of surgery. Two grams of Ancef given prior to beginning of case. Sequential compression devices (SCDs) on throughout the case. The patient returned to post-anesthesia care unit (PACU) in stable condition without complications.
[2016-11-08] MEDS: NS 1,000 ML IV SCH
[2016-11-08] MEDS: IBUPROFEN 600 MG TAB PO SCH ×4 (00:03→17:50)
[2016-11-08] MEDS: PIPERACILLIN/TAZOBACTAM SOD 3.375 GM in D5W MINI-BAG PLUS 50 ML IV SCH ×4 (00:03→17:50)
[2016-11-08] MEDS: PERCOCET 5MG/325MG TAB PO PRN (02:57)
[2016-11-08 04:00] VITALS: BP 129/74
[2016-11-08 05:25] LABS: MEAN CORPUSCULAR HGB CONC 31.2 g/dl (32.0-36.5); MEAN CORPUSCULAR VOLUME 80.2 fl (80.0-96.0); RED CELL DISTRIBUTION WIDTH 14.8 % (11.5-14.5); WHITE BLOOD COUNT 7.1 K/mm3 (4.0-10.0)
[2016-11-08 08:00] VITALS: BP 127/75
[2016-11-08] MEDS: DOCUSATE SODIUM 100 MG CAP PO SCH ×2 (09:39→21:11)
[2016-11-08 12:00] VITALS: BP 126/76
[2016-11-08 16:00] VITALS: BP 131/79
[2016-11-08 20:00] VITALS: BP 128/76
[2016-11-09] VITALS: BP 149/81
[2016-11-09] MEDS: PIPERACILLIN/TAZOBACTAM SOD 3.375 GM in D5W MINI-BAG PLUS 50 ML IV SCH ×4 (00:05→17:35)
[2016-11-09] MEDS: IBUPROFEN 600 MG TAB PO SCH ×4 (00:05→17:37)
[2016-11-09 04:00] VITALS: BP 144/89
[2016-11-09 08:01] VITALS: BP 138/78
[2016-11-09 08:07] VITALS: BP 138/78
[2016-11-09 08:14] LABS: BASO % 0.4 % (0.0-1.0); EOS # 0.3 K/mm3 (0.0-0.50); EOS % 4.5 % (0.0-3.0); LARGE UNSTAINED CELL # 0.2 K/mm3 (0.0-0.4); LARGE UNSTAINED CELL % 3.5 % (0.0-4.0); LYMPH # 1.8 K/mm3 (1.5-4.5); LYMPH % 22.3 % (24.0-44.0); MEAN CORPUSCULAR HGB CONC 31.3 g/dl (32.0-36.5); MEAN CORPUSCULAR VOLUME 79.7 fl (80.0-96.0); MONO # 0.4 K/mm3 (0.0-0.8); MONO % 5.9 % (0.0-5.0); NEUTROPHILS # 4.3 K/mm3 (1.8-7.7); NEUTROPHILS % 63.5 % (36.0-66.0); PLATELET COUNT, AUTOMATED 528 k/mm3 (150-450); RED CELL DISTRIBUTION WIDTH 15.1 % (11.5-14.5); WHITE BLOOD COUNT 6.8 K/mm3 (4.0-10.0)
[2016-11-09] MEDS: DOCUSATE SODIUM 100 MG CAP PO SCH ×2 (09:00→20:21)
[2016-11-09 12:00] VITALS: BP 125/60
[2016-11-09 20:00] VITALS: BP 109/73
[2016-11-09] MEDS: PERCOCET 5MG/325MG TAB PO PRN (20:21)
--- NOTE | 2016-11-09 22:10 | IPN ---
DATE: 11/09/2016 Ms Saleh had some abdominal pain especially when she is having gas. She has significant pain with bowel movement as well. She has some pelvic pressure with urinating. Otherwise doing well. She has had three bowel movements today. Vital signs: Temperature is 97.8, pulse 62, respirations 18, blood pressure 125/60, O2 sat 98% on room air. Heart: Normal S1-S2. No murmurs. Lungs are clear. No wheezes, rales or rhonchi. Abdomen: Soft. Suprapubic tenderness with still some induration and tenderness, mostly in the right lower quadrant area right above the incision. Wound Vac in place. Extremities: No clubbing, cyanosis or edema. No calf tenderness. IMPRESSION: Status post section complicated by abscess which is polymicrobial. Initial cultures have Klebsiella pneumoniae and E. faecalis. Follow-up cultures done on 11/07 were positive for Enterococcus faecalis as she did not have any gram positive coverage on initial treatment. PLAN: Continue with IV Zosyn for another 48 hours. When the patient is ready for discharge, she could be discharged home with Augmentin 875 mg by mouth twice a day for two more weeks. Case has been discussed with Dr. Dmitri Reed.
[2016-11-10] VITALS (9 sets, daily range): BP systolic 109–151; BP diastolic 61–82
[2016-11-10] MEDS: IBUPROFEN 600 MG TAB PO SCH ×4 (00:42→17:08)
[2016-11-10] MEDS: PIPERACILLIN/TAZOBACTAM SOD 3.375 GM in D5W MINI-BAG PLUS 50 ML IV SCH ×4 (00:43→18:05)
[2016-11-10] MEDS: PERCOCET 5MG/325MG TAB PO PRN ×3 (02:21→15:58)
[2016-11-10] MEDS: DOCUSATE SODIUM 100 MG CAP PO SCH ×2 (07:48→20:19)
[2016-11-10] MEDS ORDERED: NS 1,000 ML IV SCH (08:00)
[2016-11-10 12:37] LABS: BASO % 0.5 % (0.0-1.0); EOS # 0.3 K/mm3 (0.0-0.50); EOS % 4.3 % (0.0-3.0); LARGE UNSTAINED CELL # 0.2 K/mm3 (0.0-0.4); LARGE UNSTAINED CELL % 3.8 % (0.0-4.0); LYMPH # 1.5 K/mm3 (1.5-4.5); LYMPH % 25.1 % (24.0-44.0); MEAN CORPUSCULAR HEMOGLOBIN 24.4 pg (27.0-33.0); MEAN CORPUSCULAR HGB CONC 30.1 g/dl (32.0-36.5); MEAN CORPUSCULAR VOLUME 81.2 fl (80.0-96.0); MONO # 0.3 K/mm3 (0.0-0.8); MONO % 4.2 % (0.0-5.0); NEUTROPHILS # 3.7 K/mm3 (1.8-7.7); PLATELET COUNT, AUTOMATED 542 k/mm3 (150-450); RED CELL DISTRIBUTION WIDTH 15.3 % (11.5-14.5); WHITE BLOOD COUNT 5.9 K/mm3 (4.0-10.0)
[2016-11-10] MEDS ORDERED: BUPIVACAINE HCL 0.5% 30 ML VIAL As Ordered ONE (12:47)
[2016-11-10 13:25] LABS: ALBUMIN 2.4 GM/DL (3.2-5.2); ALBUMIN/GLOBULIN RATIO 0.59 (1.00-1.93); ALKALINE PHOSPHATASE 68 U/L (45-117); ALT/SGPT 16 U/L (12-78); ANION GAP 10 MEQ/L (8-16); AST/SGOT 15 U/L (15-37); BILIRUBIN,TOTAL 0.3 MG/DL (0.2-1.0); BLOOD UREA NITROGEN 8 MG/DL (7-18); CALCIUM LEVEL 8.4 MG/DL (8.5-10.1); CARBON DIOXIDE LEVEL 23 MEQ/L (21-32); CHLORIDE LEVEL 110 MEQ/L (98-107); CREATININE FOR GFR 0.91 MG/DL (0.55-1.02); GLOMERULAR FILTRATION RATE > 60.0 (>60); GLUCOSE, FASTING 79 MG/DL (70-105); POTASSIUM SERUM 3.7 MEQ/L (3.5-5.1); SODIUM LEVEL 143 MEQ/L (136-145); TOTAL PROTEIN 6.5 GM/DL (6.4-8.2)
[2016-11-10] MEDS ORDERED: ceFAZolin 2 GM/D5W 50 ML IV BAG (J0690) As Ordered ONE (13:48)
--- NOTE | 2016-11-10 13:50 | IPN ---
DATE: 11/10/2016 This lady was admitted because of postoperative section cellulitis. She had an operative procedure for re-evaluation and placement of wound vacuum assisted closure (VAC) 5 days ago and was placed on antibiotic therapy initially broad-spectrum coverage however, after culture and sensitivity came back and it was Klebsiella and Proteus negative, she was changed to Unasyn. She had an afebrile course since that time and had an uneventful course since that time. She is booked for surgical removal of the wound VAC today and closure of the abdominal incision. Presently her blood pressure is 121/74, respirations are 16, pulse is 64 and temperature 97.7. Her hemoglobin yesterday was 9.3, hematocrit 29.7 and platelets were 528. Her white count was 6.8. The microbiology that came back on 11/02/2016 showed Klebsiella pneumoniae and Staphylococcus coagulase negative. She was only left with Enterococcus faecalis on the culture and sensitivity on 11/07/2016. Urine cultures were negative and blood cultures were negative. On examination today, she does not appear to be in distress. She is normocephalic, atraumatic. Neck full range of motion. Pupils equal and reactive to light. Thyroid is normal. No jugular venous distention (JVD), bruits. Lungs are clear bilaterally to bases. No wheezes or rhonchi. Distal pulses are symmetric. No evidence of deep venous thrombosis (DVT), pulmonary embolus (PE) or superficial phlebitis. She is wearing sequentials while in bed. She is voiding and passing gas. She has no CVA tenderness. The abdomen is soft, not distended. Bowel sounds in all four quadrants. The wound VAC is in place and there is no suppuration and there is minimal drainage. She has no rashes or lesions or pruritus. No complaints of arthralgia, myalgia. No complaints of cough, wheezes, shortness of breath or dyspnea on exertion. She has no chest pain. She is not bleeding. She is neurologically complete. She has no incontinence. She has no nausea, vomiting, diarrhea or constipation. We discussed again the operative procedure in which we are going to remove the wound VAC and close by secondary intent with jessika the incisional site. The patient appeared to understand the risks and benefits including possibility of reapplying the wound VAC or some other operative procedure if there is any necrotic areas in the incisional site. The patient signed and witnessed the consent form and she is booked for the next available opening.
[2016-11-10] MEDS ORDERED: BUPIVACAINE HCL 0.5% 30 ML VIAL XX ONE (14:20)
[2016-11-10] MEDS ORDERED: SUCCINYLCHOLINE 100 MG/5 ML SYRINGE (J0330) As Ordered ONE (15:07)
[2016-11-10] MEDS ORDERED: PROPOFOL 200 MG/20 ML VIAL As Ordered ONE (15:07)
[2016-11-10] MEDS ORDERED: fentaNYL 250 MCG/5 ML INJECTION (J3010) As Ordered ONE (15:07)
[2016-11-10] MEDS ORDERED: dexameTHASONE 4 MG/ML 1ML VIAL (J1100) As Ordered ONE (15:07)
[2016-11-10] MEDS ORDERED: MIDAZOLAM INJ 2 MG/2 ML VIAL (J2250) As Ordered ONE (15:07)
[2016-11-10] MEDS ORDERED: ROCURONIUM BROMIDE 50 MG/5 ML VIAL As Ordered ONE (15:07)
[2016-11-10] MEDS ORDERED: ONDANSETRON 4MG/2ML VIAL (J2405) As Ordered ONE (15:07)
[2016-11-10] MEDS ORDERED: LIDOCAINE 2% INJ 100 MG/5 ML SDV (FOR ANES.) As Ordered ONE (15:07)
[2016-11-10] MEDS ORDERED: METOCLOPRAMIDE INJ 10MG/2ML VIAL (J2765) IV PRN (15:30)
[2016-11-10] MEDS ORDERED: MEPERIDINE INJ 25 MG/ML VIAL (J2175) IV PRN (15:30)
[2016-11-10] MEDS ORDERED: ONDANSETRON 4MG/2ML VIAL (J2405) IV PRN (15:30)
[2016-11-10] MEDS ORDERED: fentaNYL 100 MCG/2 ML INJECTION (J3010) IV PRN (15:30)
[2016-11-10] MEDS ORDERED: LR 1,000 ML IV SCH (15:30)
[2016-11-10] MEDS ORDERED: PERCOCET 5MG/325MG TAB As Ordered ONE ×2 (15:31→15:54)
--- NOTE | 2016-11-10 19:43 | IPN ---
DATE: 11/10/2016 Debbi went back to the operating ____ the wound. She is doing much better. She scheduled to be discharged home tomorrow. She has been afebrile. Temperature is 98, pulse 74, respirations 16, blood pressure 148/92, O2 sat 100% on 2 liters nasal cannula. Abdomen is mildly tender postoperatively and minimal induration. LABORATORY DATA: White count is 5.9, hemoglobin 9.4, hematocrit 31.3, platelets 542. Sodium 143, potassium 3.7, chloride 110, bicarb 23, BUN 8, creatinine 0.9, glucose 79, calcium 8.4, CRP yesterday was 5.78 down from 9.51, albumin 2.4. Culture initially was Klebsiella pneumoniae, staphylococcus coagulase was negative, and Enterococcus faecalis intraoperative culture on 11/07, 5 days later was only heavy growth of Enterococcus faecalis. The patient is currently day number day 3 of intravenous Zosyn doing much better. IMPRESSION: Polymicrobial infection status post caesarean section with Klebsiella and E. Faecalis. PLAN: Continue IV Zosyn until tomorrow. The patient will be discharged home hopefully tomorrow on Augmentin 875 mg by mouth twice a day for 2 weeks.
[2016-11-11] VITALS: BP 128/56
[2016-11-11] MEDS: IBUPROFEN 600 MG TAB PO SCH ×5 (00:19→23:27)
[2016-11-11] MEDS: PIPERACILLIN/TAZOBACTAM SOD 3.375 GM in D5W MINI-BAG PLUS 50 ML IV SCH ×3 (00:19→11:37)
[2016-11-11 04:00] VITALS: BP 128/60
[2016-11-11 08:00] VITALS: BP 129/75
[2016-11-11] MEDS: DOCUSATE SODIUM 100 MG CAP PO SCH ×2 (08:10→20:24)
[2016-11-11 09:31] LABS: BASO % 0.2 % (0.0-1.0); EOS # 0.1 K/mm3 (0.0-0.50); LARGE UNSTAINED CELL # 0.2 K/mm3 (0.0-0.4); LARGE UNSTAINED CELL % 1.4 % (0.0-4.0); LYMPH # 2.4 K/mm3 (1.5-4.5); LYMPH % 21.1 % (24.0-44.0); MEAN CORPUSCULAR HGB CONC 30.9 g/dl (32.0-36.5); MEAN CORPUSCULAR VOLUME 80.8 fl (80.0-96.0); MONO # 0.5 K/mm3 (0.0-0.8); MONO % 4.4 % (0.0-5.0); NEUTROPHILS # 7.6 K/mm3 (1.8-7.7); NEUTROPHILS % 71.9 % (36.0-66.0); RED CELL DISTRIBUTION WIDTH 15.6 % (11.5-14.5); WHITE BLOOD COUNT 10.6 K/mm3 (4.0-10.0)
[2016-11-11 09:54] LABS: PLATELET COUNT, AUTOMATED 681 k/mm3 (150-450)
[2016-11-11 12:00] VITALS: BP 110/62
[2016-11-11] MEDS: PERCOCET 5MG/325MG TAB PO PRN ×2 (14:07→20:25)
[2016-11-11 16:00] VITALS: BP 114/56
[2016-11-11 20:00] VITALS: BP 117/67
[2016-11-12] VITALS: BP 125/80
[2016-11-12] MEDS: PERCOCET 5MG/325MG TAB PO PRN ×2 (00:11→04:41)
--- NOTE | 2016-11-12 02:30 | IPN ---
DATE: 11/11/2016 This lady is now one day postoperative after having wound VAC removed and secondary closure of her incision with PDS, 10 sutures, because of a polymicrobial infection post section. Today, her temperature is 97.9, pulse is 63, respirations are 16, blood pressure 129/75. She has been afebrile now for a good 48 hours. The rest the examination is unremarkable. Chest is clear bilaterally to bases. No evidence of DVT, PE or superficial phlebitis. Abdomen is soft. The skin is healing well. There is no weeping and there is no discharge. The other issue is that there is a bit of induration, but this is coming down slowly and it has come down 50% from yesterday. The skin sutures are holding tight. Bowel sounds in all four quadrants are noted. The only bacteria left which is being treated is her Enterococcus. She recently had Klebsiella Staphylococcus coagulase negative and Enterococcus, the last stain was Enterococcus only. Relatively speaking she is doing well. She is mobilizing, passing gas and voiding. She is up and alert and awake. This is her last dose of antibiotic therapy at noon of [facility]. She will be given a prescription for Augmentin to take home for the next 14 days. She is going to have a dressing change tomorrow morning with Xeroform, Telfa, ABD and paper tape, and there is plan for discharge with followup in the office on Sunday. Her hemoglobin today is 10.1, hematocrit 32.3 and platelets are 681. She has some relative degree of thrombocytopenia. Her white count is 10.6, which is slightly elevated from the 5.9 of yesterday, although she had an intraoperative procedure which accounts for that although she has been afebrile. We discussed explicit precautions at home. Anybody coming into the home is required to have handwashing, anybody who has a cold, fever or any kind of malaise is to stay away. She can continue breast-feeding if she wishes on the Augmentin. Incentive spirometry is important at home and she has the device to take with her. We will give her a prescription for Augmentin and pain management, again, expressing to her she has to be judicious with her pain management as it causes constipation and it will give her a whole bunch of other issues. The patient expressed understanding and tomorrow morning we will plan on discharge.
[2016-11-12 04:00] VITALS: BP 138/85
[2016-11-12] MEDS: IBUPROFEN 600 MG TAB PO SCH (07:02)
[2016-11-12 08:00] VITALS: BP 143/96
[2016-11-12] MEDS: DOCUSATE SODIUM 100 MG CAP PO SCH (09:26)
[2016-11-12] MEDS ORDERED: OXYC1TAB23 PO (10:14)
--- NOTE | 2016-11-13 15:19 | DSES ---
DATE OF ADMISSION: 11/02/2016 DATE OF DISCHARGE: 11/12/2016 This lady is a 31-year-old 1, para 1, who had a primary section for persistent occiput posterior, failure to descend, prolonged pushing and basically was a cephalic-pelvic disproportion with asynclitic head and prolonged pushing. She had an uneventful section. She went home and came back to the office 7 days later with complaints of fever, abdominal pain, wound swelling. At that time, she appeared to be febrile, but she had just taken some anti-inflammatory. Her eyes were red. She did physically appear warm and to the warm to touch to the skin. She was well-hydrated but she said over the last several days she had increasing swelling over her lower abdomen. She had no issues with a bowel movement or voiding. On admission, her temperature was 100.3, respirations were 18, pulse 79, blood pressure 119/68. She had an initial hemoglobin of 10.6, hematocrit 34.0 and white count of 14.7. When we examined her in the office we noticed that she had active distension. The incision was draining. It was a bit foul-smelling. The erythema was coming down and we admitted her to the hospital for polymicrobial therapy indicating that she had a polymicrobial infection post section. At that time, which was November 02, we did wound cultures, blood cultures, and we did urine cultures. The urine cultures were negative on 11/02/2016. On 11/02/2016, we found that she had grown Klebsiella pneumoniae, Staphylococcus coagulase negative and Enterococcus. Her antibiotics were switched to gentamicin, as per the sensitivity. Because of the profuse draining, it was elected that she should come back to the operating theater and have wound evacuation because of her cellulitis, rule out abscess or necrotic tissue. This took place on 11/04/2016, and she had an evaluation under anesthesia, debridement, and she had a wound Vac in place with nonclosure of the skin. Again, cultures were done. She did have a CT scan of her abdomen and pelvis. There was no appreciable fascial defect and no outright abscess noted. Also, it was noted that immediately upon drainage, the inflammatory process on the upper and lower an incision started to reduce quite nicely. The plan of management was to take her back in 2 or 3 days, change the wound Vac and possibly closure of her incisional site. She had a continuous drainage pump at 74 mm, continuous pressure. She put out between 100 to 200 mL of serous fluid. At that time, we did a consultation on 11/07/[address] Benavidez for infectious disease and she originally, as mentioned, was started on cephalexin an IV clindamycin. The wound cultures, as mentioned, were Klebsiella and Staphylococcus coagulase negative and Enterococcus. She was switched to Bactrim. She also received IV gentamicin and she maxed out her temperature 99.7. Dr. Benavidez switched her to Unasyn and at that time her white count had come down from 14,000 to 9.2. Hemoglobin stabilized at 10.1, hematocrit 32.4. She did have elevated platelets, but probably related to inflammatory process. Electrolytes were normal limits. The plan of management was to put her on Zosyn and then in several days' time take her back to the operating theater, remove the wound Vac, reculture her, look for any necrotic areas, and possibly do a skin closure. Her course in the in hospital was uneventful. She was quite anxious at times and with that reflected an elevation of her blood pressure, but this was basically anxiety. The wound Vac did it's job, it held in place and we elected on 11/11/2016 to take her back to the operating room, remove the wound Vac and attempt to do secondary closure of her incision site. At the time that we took her back, she was afebrile again. Blood pressure was normalized. Her white count went up slightly at 10.6 but hemoglobin/hematocrit remained a 10.1 and 32.2. Platelets were still elevated. At the surgical intervention, we removed the wound Vac. The rectus muscles were pink and there was just that one spot which was a bit necrotic, but we did not to debride it at that time, it was less than 1 cm in size. We just irrigated vigorously with hydrogen peroxide and sterile water and it just floated away. It was nice and clean and underneath the incisional areas was a little indurated but was not bleeding. We used 10 Polysorb stitches in a mattress fashion to close the skin. We put a Xeroform on there, plus a Telfa and an ABD dressing. The plan of management was continue her Zosyn for 24 hours and change the dressing as needed. The management was for her to go home 24 hours after, seen in the office every 2 days for dressing change. On examination today, which is 11/12/2016, blood pressure is 143/96. She is quite anxious because of removing the dressing. Respirations are 18, pulse is 65, temperature is afebrile at 97.0. We removed the dressing. She had some serosanguineous effect there. We removed the Xeroform. The stitches are still in place. The induration has gone down by more than 50% and there is just minimal amount of weeping going on at the incisional site. We replaced the Xeroform dressing, the Telfa, the ABD dressing. We gave her supplies to go home with, including a shower cap for the incisional site. On discharge, she was normocephalic, atraumatic. Neck with full range of motion. Pupils equal and reactive to light. Distal pulses were symmetric. No evidence of DVT, PE or superficial phlebitis. Chest was clear bilaterally to the bases. No wheezes or rhonchi. Bowel sounds were present. She had been voiding and passing gas. There was no tympany, she is basically flat. She has no rashes or lesions or pruritus. No arthralgia, myalgia. She is not complaining of a cough, wheeze, shortness of breath or dyspnea on exertion. She has no chest pain. She is not bleeding. She is neuro complete. No incontinence. No nausea, vomiting, diarrhea or constipation. In summary, we have a lady who had a polymicrobial infection in her section incision site. Treated aggressively with intervention of wound Vac changes and aggressive polymicrobial therapy. She was sent home on Augmentin, as well as given supplies for changing the dressing site and an appointment in [address] Reed for review and change of a dressing with the Xeroform. The patient expressed understanding of the procedures. Also, we reemphasize that there will be some drainage and she has ABDs to change with that, plus skin tape. Also, we expressed precautions at home that anybody coming in with cold, fever, flu or whatever should not be admitted and anybody coming into the house should wash their hands prior to coming in. The patient was counseled with the dressing change. We spent over 40 minutes [id number]. The patient was discharged with her antibiotic therapy and supplies.
== END 2016-11-12 11:10 | disposition home or self-care (01) | DRG 769 ==
LOC: M MS5PR 12:47 → M PED 11-07 17:48
PROVIDERS: ADMIT Obstetrics & Gynecology; ATTEND Obstetrics & Gynecology
PROC: 0JD80ZZ Extraction of Abdomen Subcutaneous Tissue and Fascia, Open Approach (ICD-10-PCS; principal; 2016-11-04 17:39)
DX: O86.0 Infection of obstetric surgical wound (principal); B96.1 Klebsiella pneumoniae [K. pneumoniae] as the cause of diseases classified elsewhere; B95.7 Other staphylococcus as the cause of diseases classified elsewhere

== ENCOUNTER 2016-11-18 09:02 | Emergency (ER) | payer OTHER ==
[~2016-11-18 09:02] MED LIST changes: +DOCU100C PO; +MEDE1CRE TOP; +TYLE325T5 PO
[2016-11-18 10:08] LABS: BASO % 0.5 % (0.0-1.0); EOS # 0.2 K/mm3 (0.0-0.50); EOS % 4.4 % (0.0-3.0); LARGE UNSTAINED CELL # 0.1 K/mm3 (0.0-0.4); LARGE UNSTAINED CELL % 1.4 % (0.0-4.0); LYMPH # 1.6 K/mm3 (1.5-4.5); LYMPH % 29.2 % (24.0-44.0); MEAN CORPUSCULAR HEMOGLOBIN 25.8 pg (27.0-33.0); MEAN CORPUSCULAR HGB CONC 32.4 g/dl (32.0-36.5); MEAN CORPUSCULAR VOLUME 79.8 fl (80.0-96.0); MONO # 0.3 K/mm3 (0.0-0.8); MONO % 5.3 % (0.0-5.0); NEUTROPHILS % 59.2 % (36.0-66.0); PLATELET COUNT, AUTOMATED 517 k/mm3 (150-450); RED CELL DISTRIBUTION WIDTH 15.3 % (11.5-14.5); WHITE BLOOD COUNT 5.1 K/mm3 (4.0-10.0)
[2016-11-18 10:30] LABS: ALBUMIN 3.4 GM/DL (3.2-5.2); ALBUMIN/GLOBULIN RATIO 0.76 (1.00-1.93); ALKALINE PHOSPHATASE 74 U/L (45-117); ALT/SGPT 27 U/L (12-78); ANION GAP 9 MEQ/L (8-16); AST/SGOT 19 U/L (15-37); BILIRUBIN,TOTAL 0.3 MG/DL (0.2-1.0); BLOOD UREA NITROGEN 13 MG/DL (7-18); CALCIUM LEVEL 9.5 MG/DL (8.5-10.1); CARBON DIOXIDE LEVEL 26 MEQ/L (21-32); CHLORIDE LEVEL 105 MEQ/L (98-107); CREATININE FOR GFR 0.83 MG/DL (0.55-1.02); GLOMERULAR FILTRATION RATE > 60.0 (>60); GLUCOSE, FASTING 81 MG/DL (70-105); POTASSIUM SERUM 4.5 MEQ/L (3.5-5.1); SODIUM LEVEL 140 MEQ/L (136-145); TOTAL PROTEIN 7.9 GM/DL (6.4-8.2)
--- NOTE | 2016-11-18 10:37 | REP ---
Clinical: Chest pain . Comparison: 11/02/2015 . Technique: PA and lateral. Findings: The mediastinum and cardiac silhouette are normal. The lung ngo are clear and without acute consolidation, effusion, or pneumothorax. The skeletal structures are intact and normal. Impression: 1. No acute cardiopulmonary process. Signed by Brooks Aggarwal MD 11/18/2016 10:29 A
[2016-11-18] MEDS ORDERED: ISOVUE-370 76% 100ML VIAL (Q9967) As Ordered ONE (11:23)
--- NOTE | 2016-11-18 12:01 | REP ---
Clinical: Acute chest pain. Technique: Axial contrast enhanced images from the thoracic inlet to the upper abdomen using 100 ml Isovue 370 intravenous contrast material with coronal and sagittal re-formations. Findings: Satisfactory enhancement of the pulmonary vasculature is achieved and no filling defects are identified to suggest pulmonary embolus. Thoracic aorta is normal caliber without aneurysm or dissection. Heart and pericardium are normal. Small areas of bibasilar atelectasis (right greater left) are appreciated along with small right pleural reaction. No nodule or mass lesion. No pneumothorax. No adenopathy. Impression: No evidence for pulmonary embolus. Mild bibasilar atelectasis and small right pleural reaction. Signed by Brooks Aggarwal MD 11/18/2016 11:51 A
--- NOTE | 2016-11-18 12:51 | EDDOCDS ---
Nurse's Notes [facility] Name: Debbi Saleh Age: 31 yrs Sex: Female : 1985 Arrival Date: 11/18/2016 Time: 09:02 Bed I7 / 29 Private MD: Dmitri Reed Diagnosis: Abdominal and pelvic scar-Hfqd-Cc;Acute bronchitis-Small Right Pleural Reaction on CT Angio;Atelectasis-Mild Bibasilar Atelectasis on CT angio Presentation: 11/18 09:13 Presenting complaint: Patient states: f/u with Dr. James. Pt is here for a dressing dsf change. Adult Sepsis Screening: The patient does not have new or worsening altered mentation. Patient's respiratory rate is less than 22. Systolic blood pressure is greater than 100. Patient has a qSOFA score of 0- Negative Sepsis Screen. Suicide/Homicide risk assessment- the patient denies having any suicidal and/or homicidal ideations and does not present with any other emotional, behavioral or mental health complaints. Status: The patient is a dependent. Transition of care: patient was not received from another setting of care. 09:13 Acuity: OMEGA Level 4 dsf 09:13 Method Of Arrival: Walkin/Carried/Asstd dsf 10:28 Acuity level changed due to complexity of care. dls 10:28 Acuity: OMEGA Level 3 dls Triage Assessment: 09:15 General: Appears in no apparent distress, Behavior is appropriate for age, cooperative. dsf Pain: Location: anterior aspect of right lateral abdomen Pain currently is 4 out of 10 on a pain scale. HIV screening NA for this visit Offered previously. : No deficits noted. SURGICAL SUPPLIES STERILIZER: 09:15 recent oct 26 dsf Historical: - Allergies: no known allergies; - Home Meds: 1. Percocet 5-325 mg Oral tab every 4 hours (Last dose: 11/18/2016 06:00) 2. Motrin 800 mg Oral tab every 8 hours (Last dose: 11/18/2016 07:00) 3. Colace 100 mg oral cap 1 cap once daily (Last dose: 11/18/2016 06:00) - PMHx: none; - PSHx: ; - Social history: Smoking status: Patient states was never smoker of tobacco. No barriers to communication noted, The patient speaks fluent Ethiopian, Speaks appropriately for age. - Family history: No immediate family members are acutely ill. - : The pt / caregiver states he / she is not on anticoagulants. Home medication list is obtained from the patient. - Exposure Risk Screening:: None identified. Screenin:15 Screening information is obtained from the patient. Primary language is Ethiopian. Fall jam1 risk: No risks identified. Fall risk: No risks identified. Assistance ADL's: requires no assistance with activities of daily living. Assistance ADL's: requires no assistance with activities of daily living. Abuse/DV Screen: The patient / caregiver reports he/she is: not in a situation that causes fear, pain or injury. Abuse/DV Screen: The patient / caregiver reports he/she is: not in a situation that causes fear, pain or injury. Nutritional screening: No deficits noted. Nutritional screening: No deficits noted. Exposure Risk Screening: None identified. Exposure Risk Screening: None identified. Advance Directives: Currently, there is no health care proxy. There is no active DNR order. Advance Directives: Currently, there is no health care proxy. There is no active DNR order. There is no living will. There is no Power of Embedded Hardware Engineer. Advance directive information has not previously been placed in an [facility] medical record. Further advance directive information is declined. home support is adequate. Assessment: 09:30 General: Appears in no apparent distress, Behavior is cooperative. General: Awake and dwg alert, states less pain and drainage to pelvic incision. present. . Neurological: Level of Consciousness is awake, alert, Oriented to person, place, time. Respiratory: Airway is patent Respiratory effort is even, unlabored, Respiratory pattern is regular, symmetrical, Breath sounds are clear bilaterally. GI: Bowel sounds present X 4 quads. 09:43 General: Dr. Reed here to change dressing, 10 sutures intact. No bleeding, minimal dwg drainage. Sterile Xero-form and large ABD applied by Dr. Reed. Patient complains of pain to right chest and rib area on inspiration, lungs are clear bilaterally. Francesca Mcneal PA to assume care.. 10:41 General: Appears in no apparent distress, Behavior is cooperative. Pain: Denies pain. dwg 11:36 General: Appears in no apparent distress, Behavior is cooperative. Pain: Denies pain. mb9 Respiratory: Airway is patent Respiratory effort is even, unlabored. 12:49 Reassessment: Patient appears in no apparent distress at this time. General: Appears in mb9 no apparent distress, Behavior is cooperative. Respiratory: Airway is patent Breath sounds are clear bilaterally. Vital Signs: 09:09 BP 113 / 67; Pulse 80; Resp 18; Temp 97.8(O); Pulse Ox 98% on R/A; Weight 70.31 kg (M); nb2 Height 5 ft. 4 in. (162.56 cm) (R); Pain 0/10; 10:38 BP 122 / 67; Pulse 76; Resp 16; Temp 98.1(O); Pulse Ox 96% on R/A; Pain 0/10; dwg 12:00 BP 110 / 76; Pulse 77; Resp 18; Temp 98.1; Pulse Ox 99% ; Pain 0/10; jam1 09:09 Body Mass Index 26.61 (70.31 kg, 162.56 cm) nb2 Vitals: 09:09 Log In Time: November 18, 2016 at 09:04. nb2 ED Course: 09:08 Patient visited by Tiffany Lehman. nb2 09:08 Dmitri Reed MD is Private Physician. nb2 09:08 Patient moved to Waiting nb2 09:10 Patient visited by Tiffany Lehman. nb2 09:13 Patient moved to Pre RCE nb2 09:13 Triage Initiated dsf 09:15 Patient moved to I7 / 29 kr3 09:41 Francesca Mcneal PA-C is [facility]. ef1 09:41 Corrine White MD is Attending Physician. ef1 09:41 Patient visited by Francesca Mcneal PA-C. ef1 09:47 Patient visited by Yoni Lyle RN. dwg 09:52 [facility] Payment Agreement was scanned into [employer] and attached to record. lg 10:04 D-Dimer Quant Sent. dwg 10:04 Complete Comphrensive Metabolic Sent. dwg 10:04 CBC with Diff Sent. dwg 10:05 Inserted peripheral IV: 20gauge IV in right antecubital area. Labs drawn. (by ED dwg staff). Sent per order to lab. 10:06 Patient visited by Yoni Lyle RN. dwg 10:14 Pt greeted and oriented to ED. Patient advised of names of staff involved in care, jam1 location of call medel, wait times and NPO status. Patient has correct armband on for positive identification. Bed in low position. Call light in reach. Side rails up X2. Adult w/ patient. Door closed. 10:19 Patient visited by Francesca Mcneal PA-C. ef1 10:26 Patient visited by Yoni Lyle RN. dwg 10:26 Urine Culture Sent. dwg 10:26 UA Sent. dwg 10:42 Patient visited by Yoni Lyle RN. dwg 11:00 Chest, 2 View (pa\E\lat) Returned. EDMS 11:09 Patient visited by Nataly Fu PCA. jam1 11:31 Patient visited by Francesca Mcenal PA-C. ef1 12:01 Patient visited by Francesca Mcneal PA-C. ef1 12:21 Patient visited by Francesca Mcneal PA-C. ef1 12:30 Dmitri Reed MD is Referral Physician. ef1 12:30 EMERY Walls is Referral Physician. ef1 12:33 CT Chest Angio R/O PE Returned. EDMS 12:49 The patient / caregiver is instructed regarding the plan of care and ED course. mb9 12:49 Discontinued IV lock intact, bleeding controlled, pressure dressing applied, No mb9 redness/swelling at site. none necessary at this time. Order Results: Lab Order: CBC with Diff; SPEC'M 11/18/16 10:02 Test: WHITE BLOOD COUNT; Value: 5.1; Range: 4.0-10.0; Units: K/mm3; Status: F Test: RED BLOOD COUNT; Value: 4.48; Range: 4.00-5.40; Units: M/mm3; Status: F Test: HEMOGLOBIN; Value: 11.6; Range: 12.0-16.0; Abnormal: Below low normal; Units: g/dl; Status: F Test: HEMATOCRIT; Value: 35.7; Range: 36.0-47.0; Abnormal: Below low normal; Units: %; Status: F Test: MEAN CORPUSCULAR VOLUME; Value: 79.8; Range: 80.0-96.0; Abnormal: Below low normal; Units: fl; Status: F Test: MEAN CORPUSCULAR HEMOGLOBIN; Value: 25.8; Range: 27.0-33.0; Abnormal: Below low normal; Units: pg; Status: F Test: MEAN CORPUSCULAR HGB CONC; Value: 32.4; Range: 32.0-36.5; Units: g/dl; Status: F Test: RED CELL DISTRIBUTION WIDTH; Value: 15.3; Range: 11.5-14.5; Abnormal: Above high normal; Units: %; Status: F Test: PLATELET COUNT, AUTOMATED; Value: 517; Range: 150-450; Abnormal: Above high normal; Units: k/mm3; Status: F Test: NEUTROPHILS %; Value: 59.2; Range: 36.0-66.0; Units: %; Status: F Test: LYMPH %; Value: 29.2; Range: 24.0-44.0; Units: %; Status: F Test: MONO %; Value: 5.3; Range: 0.0-5.0; Abnormal: Above high normal; Units: %; Status: F Test: EOS %; Value: 4.4; Range: 0.0-3.0; Abnormal: Above high normal; Units: %; Status: F Test: BASO %; Value: 0.5; Range: 0.0-1.0; Units: %; Status: F Test: LARGE UNSTAINED CELL %; Value: 1.4; Range: 0.0-4.0; Units: %; Status: F Test: NEUTROPHILS #; Value: 3.0; Range: 1.8-7.7; Units: K/mm3; Status: F Test: LYMPH #; Value: 1.6; Range: 1.5-4.5; Units: K/mm3; Status: F Test: MONO #; Value: 0.3; Range: 0.0-0.8; Units: K/mm3; Status: F Test: EOS #; Value: 0.2; Range: 0.0-0.50; Units: K/mm3; Status: F Test: BASO #; Value: 0.0; Range: 0.0-0.2; Units: K/mm3; Status: F Test: LARGE UNSTAINED CELL #; Value: 0.1; Range: 0.0-0.4; Units: K/mm3; Status: F Lab Order: Complete Comphrensive Metabolic; SPEC'M 11/18/16 10:02 Test: GLUCOSE, FASTING; Value: 81; Range: 70-105; Units: MG/DL; Status: F Test: BLOOD UREA NITROGEN; Value: 13; Range: 7-18; Units: MG/DL; Status: F Test: CREATININE FOR GFR; Value: 0.83; Range: 0.55-1.02; Units: MG/DL; Status: F Test: GLOMERULAR FILTRATION RATE; Value: > 60.0; Range: >60; Status: F Test: SODIUM LEVEL; Value: 140; Range: 136-145; Units: MEQ/L; Status: F Test: POTASSIUM SERUM; Value: 4.5; Range: 3.5-5.1; Units: MEQ/L; Status: F Test: CHLORIDE LEVEL; Value: 105; Range: 98-107; Units: MEQ/L; Status: F Test: CARBON DIOXIDE LEVEL; Value: 26; Range: 21-32; Units: MEQ/L; Status: F Test: ANION GAP; Value: 9; Range: 8-16; Units: MEQ/L; Status: F Test: CALCIUM LEVEL; Value: 9.5; Range: 8.5-10.1; Units: MG/DL; Status: F Test: AST/SGOT; Value: 19; Range: 15-37; Units: U/L; Status: F Test: ALT/SGPT; Value: 27; Range: 12-78; Units: U/L; Status: F Test: ALKALINE PHOSPHATASE; Value: 74; Range: 45-117; Units: U/L; Status: F Test: BILIRUBIN,TOTAL; Value: 0.3; Range: 0.2-1.0; Units: MG/DL; Status: F Test: TOTAL PROTEIN; Value: 7.9; Range: 6.4-8.2; Units: GM/DL; Status: F Test: ALBUMIN; Value: 3.4; Range: 3.2-5.2; Units: GM/DL; Status: F Test: ALBUMIN/GLOBULIN RATIO; Value: 0.76; Range: 1.00-1.93; Abnormal: Below low normal; Status: F Test Note: ; Units are mL/min/1.73 m2 Chronic Kidney Disease Staging per NKF: Stage I & II GFR >=60 Normal to Mildly Decreased Stage III GFR 30-59 Moderately Decreased Stage IV GFR 15-29 Severely Decreased Stage V GFR <15 Very Little GFR Left ESRD GFR <15 on SYSTEM ENGINEER Lab Order: D-Dimer Quant; SPEC'M 11/18/16 10:02 Test: D-DIMER QUANT; Value: 2495.1; Range: <500; Abnormal: Above high normal; Units: ng/ml; Status: F Lab Order: UA; SPEC'M 11/18/16 10:22 Test: APPEARANCE, URINE; Value: CLEAR; Range: CLEAR; Status: F Test: COLOR, URINE; Value: STRAW; Range: YELLOW; Status: F Test: PH,URINE; Value: 5.0; Range: 5.0-9.0; Units: UNITS; Status: F Test: SPECIFIC GRAVITY URINE AUTO; Value: 1.004; Range: 1.002-1.035; Status: F Test: PROTEIN, URINE AUTO; Value: NEGATIVE; Range: NEGATIVE; Units: mg/dL; Status: F Test: GLUCOSE, URINE (UA) AUTO; Value: NEGATIVE; Range: NEGATIVE; Units: mg/dL; Status: F Test: KETONE, URINE AUTO; Value: NEGATIVE; Range: NEGATIVE; Units: mg/dL; Status: F Test: UROBILINOGEN, URINE AUTO; Value: 0.2; Range: 0.0-2.0; Units: mg/dL; Status: F Test: BILIRUBIN, URINE AUTO; Value: NEGATIVE; Range: NEGATIVE; Status: F Test: NITRITE, URINE AUTO; Value: NEGATIVE; Range: NEGATIVE; Status: F Test: LEUKOCYTE ESTERASE, URINE AUTO; Value: NEGATIVE; Range: NEGATIVE; Status: F Test: BLOOD, URINE BLOOD; Value: 1+; Range: NEGATIVE; Abnormal: Above high normal; Status: F Test: WBC, URINE AUTO; Value: 2; Range: 0-3; Units: /HPF; Status: F Test: RBC, URINE AUTO; Value: 1; Range: 0-3; Units: /HPF; Status: F Test: BACTERIA, URINE AUTO; Value: NEGATIVE; Range: NEGATIVE; Status: F Test: SQUAMOUS EPITHELIAL CELL UR AU; Value: 0; Range: 0-6; Units: /HPF; Status: F Test: MUCUS, URINE; Value: SMALL; Range: NEGATIVE; Status: F Test: HYALINE CAST, URINE AUTO; Value: 0; Range: 0-1; Units: /LPF; Status: F Lab Order: Cardiac Injury Profile; SPEC'M 11/18/16 09:49 Test: CPK CREATINE PHOSPHOKINASE; Value: 55; Range: 26-192; Units: U/L; Status: F Test: CK-MB VALUE MASS; Value: 1.0; Range: 0.0-3.6; Units: NG/ML; Status: F Test: MB/CK RELATIVE INDEX; Value: 1.81; Range: < OR =4; Status: F Test Note: ; DIAGNOSIS CRITERIA MMB ng/ml Relative Index (RI) NON-AMI < or = 5 N/A MARTINEZ ZONE > 5 < or = 4 AMI > 5 > 4 Lab Order: Troponin; SPEC'M 11/18/16 09:49 Test: TROPONIN I; Value: < 0.02; Range: < 0.10; Units: NG/ML; Status: F Test Note: ; Troponin I Reference Interval for [employer] LOCI: 99th Percentile= 0.00-0.045 ng/ml Risk Stratification: <= 0.10 ng/ml Decreased Risk for Adverse Clinical Events. 0.10-1.50 ng/ml Increased Risk for Adverse Clinical Events. Evaluation of additional criterion and/or repeat testing in 2-6 hours is suggested to rule out myocardial damage. >= 1.50 ng/ml Indicative of Myocardial Injury. Radiology Order: Chest, 2 View (pa\E\lat) Test: Chest, 2 View (pa\E\lat) REASON FOR EXAMINATION: Chest Pain; Clinical: Chest pain .; ; Comparison: 11/02/2015 .; ; Technique: PA and lateral.; ; Findings:; The mediastinum and cardiac silhouette are normal. The lung ngo are clear and; without acute consolidation, effusion, or pneumothorax. The skeletal structures; are intact and normal.; ; Impression:; 1. No acute cardiopulmonary process.; ; ; Signed by; Brooks Aggarwal MD 11/18/2016 10:29 A; Radiology Order: CT Chest Angio R/O PE Test: CT Chest Angio R/O PE REASON FOR EXAMINATION: Chest Pain; Clinical: Acute chest pain.; ; Technique: Axial contrast enhanced images from the thoracic inlet to the upper; abdomen using 100 ml Isovue 370 intravenous contrast material with coronal and; sagittal re-formations.; ; Findings: Satisfactory enhancement of the pulmonary vasculature is achieved and; no filling defects are identified to suggest pulmonary embolus. Thoracic aorta; is normal caliber without aneurysm or dissection. Heart and pericardium are; normal. Small areas of bibasilar atelectasis (right greater left) are; appreciated along with small right pleural reaction. No nodule or mass lesion.; No pneumothorax. No adenopathy.; ; Impression:; No evidence for pulmonary embolus.; Mild bibasilar atelectasis and small right pleural reaction.; ; ; Signed by; Brooks Aggarwal MD 11/18/2016 11:51 A; Outcome: 12:30 Discharge ordered by Provider. ef1 12:49 Discharge Assessment: Patient awake, alert and oriented x 3. No cognitive and/or mb9 functional deficits noted. Patient verbalized understanding of disposition instructions. patient administered narcotics - no. The following High Risk Discharge criteria are identified: None. Discharged to home ambulatory, with significant other. Condition: good Condition: stable Condition: improved. Discharge instructions given to patient, Instructed on discharge instructions, follow up and referral plans. medication usage, Demonstrated understanding of instructions, medications, Pt was receptive of discharge instructions/ teaching. Prescriptions given X 2. CT Study completed. Property :Personal belongings accompany Pt. 12:50 Patient left the ED. mb9 Signatures: Dispatcher [employer] EDMS Yoni Lyle RN RN dwg Scott, Debra, RN RN dls Murphy, Jane, BEAD FLIPPER BEAD FLIPPER jam1 Cally Rice, Kenneth Reg lg Sobeida MonteRN RN rhea3 Francesca Mcneal, PA-C PA-C ef1 Carey BalderasRN RN Adan HighRN RN mb9 Tiffany Lehman Corrections: (The following items were deleted from the chart) 10:07 10:05 LIPASE+LAB sent. [facility] EDMS 10:07 10:05 AMYLASE+LAB sent. [facility] EDMS MTDD
--- NOTE | 2016-11-18 12:51 | EDDOCDS ---
Physician Documentation [facility] Name: Debbi Saleh Age: 31 yrs Sex: Female : 1985 Arrival Date: 11/18/2016 Time: 09:02 Bed I7 / 29 Private MD: Dmitri Reed Disposition: 11/18/16 12:30 Discharged to Home/Self Care. Impression: Abdominal and pelvic pain - Post-Op, Acute bronchitis - Small Right Pleural Reaction on CT Angio, Atelectasis - Mild Bibasilar Atelectasis on CT angio. - Condition is Stable. - Discharge Instructions: Atelectasis, Adult, Abdominal Pain, Adult, Kuuh-hy-Vhws, Acute Bronchitis, Cryl-po-Oyiw. - Prescriptions for Amoxicillin 875 mg Oral Tablet - take 1 tablet by ORAL route every 12 hours for 10 days; 20 tablet. Albuterol Sulfate 90 mcg/actuation Inhalation HFA Aerosol Inhaler - inhale 2 puff by INHALATION route every 4 hours As needed; 1 Inhaler. - Medication Reconciliation, Local Pharmacy Hours form. - Follow up: Dmitri Reed; When: 1 - 2 days; Reason: Recheck today's complaints, Continuance of care. Follow up: [facility]; When: 1 - 2 days; Reason: Recheck today's complaints, Continuance of care. Follow up: Emergency Department; Reason: Worsening of conditions. - Problem is new. - Symptoms have improved. Historical: - Allergies: no known allergies; - Home Meds: 1. Percocet 5-325 mg Oral tab every 4 hours (Last dose: 11/18/2016 06:00) 2. Motrin 800 mg Oral tab every 8 hours (Last dose: 11/18/2016 07:00) 3. Colace 100 mg oral cap 1 cap once daily (Last dose: 11/18/2016 06:00) - PMHx: none; - PSHx: ; - Social history: Smoking status: Patient states was never smoker of tobacco. No barriers to communication noted, The patient speaks fluent Sierra Leonean, Speaks appropriately for age. - Family history: No immediate family members are acutely ill. - : The pt / caregiver states he / she is not on anticoagulants. Home medication list is obtained from the patient. - Exposure Risk Screening:: None identified. MANAGER SECURITY: 11/18 09:15 recent oct 26 [facility] Vital Signs: 09:09 BP 113 / 67; Pulse 80; Resp 18; Temp 97.8(O); Pulse Ox 98% on R/A; Weight 70.31 kg / nb2 155.01 lbs (M); Height 5 ft. 4 in. (162.56 cm) (R); Pain 0/10; 10:38 BP 122 / 67; Pulse 76; Resp 16; Temp 98.1(O); Pulse Ox 96% on R/A; Pain 0/10; dwg 12:00 BP 110 / 76; Pulse 77; Resp 18; Temp 98.1; Pulse Ox 99% ; Pain 0/10; jam1 09:09 Body Mass Index 26.61 (70.31 kg, 162.56 cm) nb2 MDM: 09:41 IV Saline Lock ordered. ef1 09:43 CBC with Diff Ordered. EDMS 09:43 Complete Comphrensive Metabolic Ordered. EDMS 09:43 D-Dimer Quant Ordered. EDMS 09:49 Financial registration complete. lg 09:52 [facility] Payment Agreement was scanned into [employer] and attached to record. lg 09:56 Chest, 2 View (pa\E\lat) Ordered. EDMS 09:56 ECG WITH READING ER PHYS+CARDIAG ordered. EDMS 10:08 UA Ordered. EDMS 10:08 Urine Culture Ordered. EDMS 10:21 Cardiac Injury Profile Ordered. EDMS 10:21 Troponin Ordered. EDMS 10:45 CBC with Diff Reviewed. ef1 10:45 Complete Comphrensive Metabolic Reviewed. ef1 10:45 D-Dimer Quant Reviewed. ef1 10:45 UA Reviewed. ef1 10:45 Cardiac Injury Profile Reviewed. ef1 10:45 Troponin Reviewed. ef1 10:48 CT Chest Angio R/O PE Ordered. EDMS 12:01 Chest, 2 View (pa\E\lat) Reviewed. ef1 12:34 CT Chest Angio R/O PE Reviewed. ef1 Signatures: Dispatcher [employer] EDMS Cally Rice, Reg Reg lg Francesca Mcneal, PABerthaC PA-C ef1 Carey Balderas RN RN dsf Adan Sosa RN RN mb9 The chart was reviewed and I authenticate all verbal orders and agree with the evaluation and treatment provided.Corrections: (The following items were deleted from the chart) 10: 09:56 AMYLASE+LAB ordered. EDMS EDMS 10:04 08:56 LIPASE+LAB ordered. EDMS EDMS Attachments: 09:52 [facility] Payment Agreement lg MTDD
--- NOTE | 2016-11-18 19:45 | ECGEPIP ---
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
--- NOTE | 2016-11-20 07:18 | ER ---
DATE: 11/18/2016 This lady was seen in the emergency room regarding change of her dressing. She had a previous section, subsequently had a multi-polymicrobial infection at her incision site. Was taken back to the operating room twice for wound Vac revision and then she has come every second day for dressing change. On examination today, she does not appear in any distress but she says that she has had increasing chest pain on her right side from the tip of her lung up to her shoulder when she has a deep breath or when she breathes. She is still having issues with her hemorrhoids and despite the fact she is using the ProctoFoam, it still seems to be an issue. On examination of her abdomen, four quadrant bowel sounds are noted. Abdomen is soft. She has some weeping coming from the incisional site. The stitches are in place. We removed the Xerofoam. We replaced it. We put a Telfa, an ABD bandage and paper tape. The patient is to come to the clinic on Sunday for another dressing change. The emergency physician will review and workup for shortness of breath. The patient will be discharged from the emergency based on their findings.
--- NOTE | 2016-11-20 13:51 | EDDOCDS ---
Physician Documentation [facility] Name: Debbi Saleh Age: 31 yrs Sex: Female : 1985 Arrival Date: 11/18/2016 Time: 09:02 Bed I7 / 29 Private MD: Dmitri Reed Disposition: 11/18/16 12:30 Discharged to Home/Self Care. Impression: Abdominal and pelvic pain - Post-Op, Acute bronchitis - Small Right Pleural Reaction on CT Angio, Atelectasis - Mild Bibasilar Atelectasis on CT angio. - Condition is Stable. - Discharge Instructions: Atelectasis, Adult, Abdominal Pain, Adult, Peuk-nr-Qitn, Acute Bronchitis, Mgkg-wv-Clvl. - Prescriptions for Amoxicillin 875 mg Oral Tablet - take 1 tablet by ORAL route every 12 hours for 10 days; 20 tablet. Albuterol Sulfate 90 mcg/actuation Inhalation HFA Aerosol Inhaler - inhale 2 puff by INHALATION route every 4 hours As needed; 1 Inhaler. - Medication Reconciliation, Local Pharmacy Hours form. - Follow up: Dmitri Reed; When: 1 - 2 days; Reason: Recheck today's complaints, Continuance of care. Follow up: [facility]; When: 1 - 2 days; Reason: Recheck today's complaints, Continuance of care. Follow up: Emergency Department; Reason: Worsening of conditions. - Problem is new. - Symptoms have improved. Historical: - Allergies: no known allergies; - Home Meds: 1. Percocet 5-325 mg Oral tab every 4 hours (Last dose: 11/18/2016 06:00) 2. Motrin 800 mg Oral tab every 8 hours (Last dose: 11/18/2016 07:00) 3. Colace 100 mg oral cap 1 cap once daily (Last dose: 11/18/2016 06:00) - PMHx: none; - PSHx: ; - Social history: Smoking status: Patient states was never smoker of tobacco. No barriers to communication noted, The patient speaks fluent Portuguese, Speaks appropriately for age. - Family history: No immediate family members are acutely ill. - : The pt / caregiver states he / she is not on anticoagulants. Home medication list is obtained from the patient. - Exposure Risk Screening:: None identified. 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 4 in. (162.56 cm) (R); Pain 0/10; 10:38 BP 122 / 67; Pulse 76; Resp 16; Temp 98.1(O); Pulse Ox 96% on R/A; Pain 0/10; dwg 12:00 BP 110 / 76; Pulse 77; Resp 18; Temp 98.1; Pulse Ox 99% ; Pain 0/10; jam1 09:09 Body Mass Index 26.61 (70.31 kg, 162.56 cm) nb2 MDM: 09:41 IV Saline Lock ordered. ef1 09:43 CBC with Diff Ordered. EDMS 09:43 Complete Comphrensive Metabolic Ordered. EDMS 09:43 D-Dimer Quant Ordered. EDMS 09:49 Financial registration complete. lg 09:52 [facility] [place] was scanned into [employer] and attached to record. lg 09:56 Chest, 2 View (pa\E\lat) Ordered. EDMS 09:56 ECG WITH READING ER PHYS+CARDIAG ordered. EDMS 10:08 UA Ordered. EDMS 10:08 Urine Culture Ordered. EDMS 10:21 Cardiac Injury Profile Ordered. EDMS 10:21 Troponin Ordered. EDMS 10:45 CBC with Diff Reviewed. ef1 10:45 Complete Comphrensive Metabolic Reviewed. ef1 10:45 D-Dimer Quant Reviewed. ef1 10:45 UA Reviewed. ef1 10:45 Cardiac Injury Profile Reviewed. ef1 10:45 Troponin Reviewed. ef1 10:48 CT Chest Angio R/O PE Ordered. EDMS 12:01 Chest, 2 View (pa\E\lat) Reviewed. ef1 12:34 CT Chest Angio R/O PE Reviewed. ef1 14:42 T-Sheet-- Draft Copy was scanned into [employer] and attached to record. gb 14:42 ECG/EKG was scanned into [employer] and attached to record. gb 14:43 Radiology Report was scanned into [employer] and attached to record. gb Signatures: Dispatcher [employer] EDMS Elyssa Burch, Reg Reg gb Cally Rice, Reg Reg lg Francesca Mcneal, PA-C PA-C ef1 Carey Balderas,RN RN dsf Adan SosaRN RN mb9 The chart was reviewed and I authenticate all verbal orders and agree with the evaluation and treatment provided.Corrections: (The following items were deleted from the chart) 10:07 09:56 AMYLASE+LAB ordered. EDMS EDMS 10:07 09:56 LIPASE+LAB ordered. EDMS EDMS Attachments: 09:52 [facility] [place] Agreement lg 14:42 T-Sheet-- Draft Copy gb 14:42 ECG/EKG gb Chart Complete MTDD
--- NOTE | 2016-11-20 13:51 | EDDOCDS ---
Nurse's Notes [facility] Name: Debbi Meier Age: 31 yrs Sex: Female : 1985 Arrival Date: 11/18/2016 Time: 09:02 Bed I7 / 29 Private MD: Dmitri Reed Diagnosis: Abdominal and pelvic [id number];Acute bronchitis-Small Right Pleural Reaction on CT Angio;Atelectasis-Mild Bibasilar Atelectasis on CT angio Presentation: 11/18 09:13 Presenting complaint: Patient states: f/u with Dr. James. Pt is here for a dressing dsf change. Adult Sepsis Screening: The patient does not have new or worsening altered mentation. Patient's respiratory rate is less than 22. Systolic blood pressure is greater than 100. Patient has a qSOFA score of 0- Negative Sepsis Screen. Suicide/Homicide risk assessment- the patient denies having any suicidal and/or homicidal ideations and does not present with any other emotional, behavioral or mental health complaints. Status: The patient is a dependent. Transition of care: patient was not received from another setting of care. 09:13 Acuity: OMEGA Level 4 dsf 09:13 Method Of Arrival: Walkin/Carried/Asstd dsf 10:28 Acuity level changed due to complexity of care. dls 10:28 Acuity: OMEGA Level 3 dls Triage Assessment: 09:15 General: Appears in no apparent distress, Behavior is appropriate for age, cooperative. dsf Pain: Location: anterior aspect of right lateral abdomen Pain currently is 4 out of 10 on a pain scale. HIV screening NA for this visit Offered previously. : No deficits noted. 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 Percocet 5-325 mg Oral tab every 4 hours (Last dose: 11/18/2016 06:00) 2. Motrin 800 mg Oral tab every 8 hours (Last dose: 11/18/2016 07:00) 3. Colace 100 mg oral cap 1 cap once daily (Last dose: 11/18/2016 06:00) - PMHx: none; - PSHx: ; - Social history: Smoking status: Patient states was never smoker of tobacco. No barriers to communication noted, The patient speaks fluent Greenlandic, Speaks appropriately for age. - Family history: No immediate family members are acutely ill. - : The pt / caregiver states he / she is not on anticoagulants. Home medication list is obtained from the patient. - Exposure Risk Screening:: None identified. Screenin:15 Screening information is obtained from the patient. Primary language is Greenlandic. Fall jam1 risk: No risks identified. Fall risk: No risks identified. Assistance ADL's: requires no assistance with activities of daily living. Assistance ADL's: requires no assistance with activities of daily living. Abuse/DV Screen: The patient / caregiver reports he/she is: not in a situation that causes fear, pain or injury. Abuse/DV Screen: The patient / caregiver reports he/she is: not in a situation that causes fear, pain or injury. Nutritional screening: No deficits noted. Nutritional screening: No deficits noted. Exposure Risk Screening: None identified. Exposure Risk Screening: None identified. Advance Directives: Currently, there is no health care proxy. There is no active DNR order. Advance Directives: Currently, there is no health care proxy. There is no active DNR order. There is no living will. There is no Power of Parking Worker. Advance directive information has not previously been placed in an [facility] medical record. Further advance directive information is declined. home support is adequate. Assessment: 09:30 General: Appears in no apparent distress, Behavior is cooperative. General: Awake and dwg alert, states less pain and drainage to pelvic incision. present. . Neurological: Level of Consciousness is awake, alert, Oriented to person, place, time. Respiratory: Airway is patent Respiratory effort is even, unlabored, Respiratory pattern is regular, symmetrical, Breath sounds are clear bilaterally. GI: Bowel sounds present X 4 quads. 09:43 General: Dr. Reed here to change dressing, 10 sutures intact. No bleeding, minimal dwg drainage. Sterile Xero-form and large ABD applied by Dr. Reed. Patient complains of pain to right chest and rib area on inspiration, lungs are clear bilaterally. Francesca Mcneal PA to assume care.. 10:41 General: Appears in no apparent distress, Behavior is cooperative. Pain: Denies pain. dwg 11:36 General: Appears in no apparent distress, Behavior is cooperative. Pain: Denies pain. mb9 Respiratory: Airway is patent Respiratory effort is even, unlabored. 12:49 Reassessment: Patient appears in no apparent distress at this time. General: Appears in mb9 no apparent distress, Behavior is cooperative. Respiratory: Airway is patent Breath sounds are clear bilaterally. Vital Signs: 09:09 BP 113 / 67; Pulse 80; Resp 18; Temp 97.8(O); Pulse Ox 98% on R/A; Weight 70.31 kg (M); nb2 Height 5 ft. 4 in. (162.56 cm) (R); Pain 0/10; 10:38 BP 122 / 67; Pulse 76; Resp 16; Temp 98.1(O); Pulse Ox 96% on R/A; Pain 0/10; dwg 12:00 BP 110 / 76; Pulse 77; Resp 18; Temp 98.1; Pulse Ox 99% ; Pain 0/10; jam1 09:09 Body Mass Index 26.61 (70.31 kg, 162.56 cm) nb2 Vitals: 09:09 Log In Time: November 18, 2016 at 09:04. nb2 ED Course: 09:08 Patient visited by Tiffany Lehman. nb2 09:08 Dmitri Reed MD is Private Physician. nb2 09:08 Patient moved to Waiting nb2 09:10 Patient visited by Tiffany Lehman. nb2 09:13 Patient moved to Pre RCE nb2 09:13 Triage Initiated dsf 09:15 Patient moved to I7 / 29 kr3 09:41 Francesca Mcneal PA-C is [facility]. ef1 09:41 Corrine White MD is Attending Physician. ef1 09:41 Patient visited by Francesca Mcneal PA-C. ef1 09:47 Patient visited by Yoni Lyle RN. dwg 09:52 [facility] Payment Agreement was scanned into [employer] and attached to record. lg 10:04 D-Dimer Quant Sent. dwg 10:04 Complete Comphrensive Metabolic Sent. dwg 10:04 CBC with Diff Sent. dwg 10:05 Inserted peripheral IV: 20gauge IV in right antecubital area. Labs drawn. (by ED dwg staff). Sent per order to lab. 10:06 Patient visited by Yoni Lyle RN. dwg 10:14 Pt greeted and oriented to ED. Patient advised of names of staff involved in care, jam1 location of call medel, wait times and NPO status. Patient has correct armband on for positive identification. Bed in low position. Call light in reach. Side rails up X2. Adult w/ patient. Door closed. 10:19 Patient visited by Francesca Mcneal PA-C. ef1 10:26 Patient visited by Yoni Lyle RN. dwg 10:26 Urine Culture Sent. dwg 10:26 UA Sent. dwg 10:42 Patient visited by Yoni Lyle RN. dwg 11:00 Chest, 2 View (pa\E\lat) Returned. EDMS 11:09 Patient visited by Nataly Fu PCA. jam1 11:31 Patient visited by Francesca Mcneal PA-C. ef1 12:01 Patient visited by Francesca Mcneal PA-C. ef1 12:21 Patient visited by Francesca Mcneal PA-C. ef1 12:30 Dmitri Reed MD is Referral Physician. ef1 12:30 EMERY Walls is Referral Physician. ef1 12:33 CT Chest Angio R/O PE Returned. EDMS 12:49 The patient / caregiver is instructed regarding the plan of care and ED course. mb9 12:49 Discontinued IV lock intact, bleeding controlled, pressure dressing applied, No mb9 redness/swelling at site. none necessary at this time. 14:42 T-Sheet-- Draft Copy was scanned into [employer] and attached to record. gb 14:42 ECG/EKG was scanned into [employer] and attached to record. gb 14:43 Radiology Report was scanned into [employer] and attached to record. gb 20:06 EKG-ADULT Returned. EDMS Order Results: Lab Order: CBC with Diff; SPEC'M 11/18/16 10:02 Test: WHITE BLOOD COUNT; Value: 5.1; Range: 4.0-10.0; Units: K/mm3; Status: F Test: RED BLOOD COUNT; Value: 4.48; Range: 4.00-5.40; Units: M/mm3; Status: F Test: HEMOGLOBIN; Value: 11.6; Range: 12.0-16.0; Abnormal: Below low normal; Units: g/dl; Status: F Test: HEMATOCRIT; Value: 35.7; Range: 36.0-47.0; Abnormal: Below low normal; Units: %; Status: F Test: MEAN CORPUSCULAR VOLUME; Value: 79.8; Range: 80.0-96.0; Abnormal: Below low normal; Units: fl; Status: F Test: MEAN CORPUSCULAR HEMOGLOBIN; Value: 25.8; Range: 27.0-33.0; Abnormal: Below low normal; Units: pg; Status: F Test: MEAN CORPUSCULAR HGB CONC; Value: 32.4; Range: 32.0-36.5; Units: g/dl; Status: F Test: RED CELL DISTRIBUTION WIDTH; Value: 15.3; Range: 11.5-14.5; Abnormal: Above high normal; Units: %; Status: F Test: PLATELET COUNT, AUTOMATED; Value: 517; Range: 150-450; Abnormal: Above high normal; Units: k/mm3; Status: F Test: NEUTROPHILS %; Value: 59.2; Range: 36.0-66.0; Units: %; Status: F Test: LYMPH %; Value: 29.2; Range: 24.0-44.0; Units: %; Status: F Test: MONO %; Value: 5.3; Range: 0.0-5.0; Abnormal: Above high normal; Units: %; Status: F Test: EOS %; Value: 4.4; Range: 0.0-3.0; Abnormal: Above high normal; Units: %; Status: F Test: BASO %; Value: 0.5; Range: 0.0-1.0; Units: %; Status: F Test: LARGE UNSTAINED CELL %; Value: 1.4; Range: 0.0-4.0; Units: %; Status: F Test: NEUTROPHILS #; Value: 3.0; Range: 1.8-7.7; Units: K/mm3; Status: F Test: LYMPH #; Value: 1.6; Range: 1.5-4.5; Units: K/mm3; Status: F Test: MONO #; Value: 0.3; Range: 0.0-0.8; Units: K/mm3; Status: F Test: EOS #; Value: 0.2; Range: 0.0-0.50; Units: K/mm3; Status: F Test: BASO #; Value: 0.0; Range: 0.0-0.2; Units: K/mm3; Status: F Test: LARGE UNSTAINED CELL #; Value: 0.1; Range: 0.0-0.4; Units: K/mm3; Status: F Lab Order: Complete Comphrensive Metabolic; SPEC'M 11/18/16 10:02 Test: GLUCOSE, FASTING; Value: 81; Range: 70-105; Units: MG/DL; Status: F Test: BLOOD UREA NITROGEN; Value: 13; Range: 7-18; Units: MG/DL; Status: F Test: CREATININE FOR GFR; Value: 0.83; Range: 0.55-1.02; Units: MG/DL; Status: F Test: GLOMERULAR FILTRATION RATE; Value: > 60.0; Range: >60; Status: F Test: SODIUM LEVEL; Value: 140; Range: 136-145; Units: MEQ/L; Status: F Test: POTASSIUM SERUM; Value: 4.5; Range: 3.5-5.1; Units: MEQ/L; Status: F Test: CHLORIDE LEVEL; Value: 105; Range: 98-107; Units: MEQ/L; Status: F Test: CARBON DIOXIDE LEVEL; Value: 26; Range: 21-32; Units: MEQ/L; Status: F Test: ANION GAP; Value: 9; Range: 8-16; Units: MEQ/L; Status: F Test: CALCIUM LEVEL; Value: 9.5; Range: 8.5-10.1; Units: MG/DL; Status: F Test: AST/SGOT; Value: 19; Range: 15-37; Units: U/L; Status: F Test: ALT/SGPT; Value: 27; Range: 12-78; Units: U/L; Status: F Test: ALKALINE PHOSPHATASE; Value: 74; Range: 45-117; Units: U/L; Status: F Test: BILIRUBIN,TOTAL; Value: 0.3; Range: 0.2-1.0; Units: MG/DL; Status: F Test: TOTAL PROTEIN; Value: 7.9; Range: 6.4-8.2; Units: GM/DL; Status: F Test: ALBUMIN; Value: 3.4; Range: 3.2-5.2; Units: GM/DL; Status: F Test: ALBUMIN/GLOBULIN RATIO; Value: 0.76; Range: 1.00-1.93; Abnormal: Below low normal; Status: F Test Note: ; Units are mL/min/1.73 m2 Chronic Kidney Disease Staging per NKF: Stage I & II GFR >=60 Normal to Mildly Decreased Stage III GFR 30-59 Moderately Decreased Stage IV GFR 15-29 Severely Decreased Stage V GFR <15 Very Little GFR Left ESRD GFR <15 on BUFFER MACHINE Lab Order: D-Dimer Quant; SPEC'M 11/18/16 10:02 Test: D-DIMER QUANT; Value: 2495.1; Range: <500; Abnormal: Above high normal; Units: ng/ml; Status: F Lab Order: UA; SPEC'M 11/18/16 10:22 Test: APPEARANCE, URINE; Value: CLEAR; Range: CLEAR; Status: F Test: COLOR, URINE; Value: STRAW; Range: YELLOW; Status: F Test: PH,URINE; Value: 5.0; Range: 5.0-9.0; Units: UNITS; Status: F Test: SPECIFIC GRAVITY URINE AUTO; Value: 1.004; Range: 1.002-1.035; Status: F Test: PROTEIN, URINE AUTO; Value: NEGATIVE; Range: NEGATIVE; Units: mg/dL; Status: F Test: GLUCOSE, URINE (UA) AUTO; Value: NEGATIVE; Range: NEGATIVE; Units: mg/dL; Status: F Test: KETONE, URINE AUTO; Value: NEGATIVE; Range: NEGATIVE; Units: mg/dL; Status: F Test: UROBILINOGEN, URINE AUTO; Value: 0.2; Range: 0.0-2.0; Units: mg/dL; Status: F Test: BILIRUBIN, URINE AUTO; Value: NEGATIVE; Range: NEGATIVE; Status: F Test: NITRITE, URINE AUTO; Value: NEGATIVE; Range: NEGATIVE; Status: F Test: LEUKOCYTE ESTERASE, URINE AUTO; Value: NEGATIVE; Range: NEGATIVE; Status: F Test: BLOOD, URINE BLOOD; Value: 1+; Range: NEGATIVE; Abnormal: Above high normal; Status: F Test: WBC, URINE AUTO; Value: 2; Range: 0-3; Units: /HPF; Status: F Test: RBC, URINE AUTO; Value: 1; Range: 0-3; Units: /HPF; Status: F Test: BACTERIA, URINE AUTO; Value: NEGATIVE; Range: NEGATIVE; Status: F Test: SQUAMOUS EPITHELIAL CELL UR AU; Value: 0; Range: 0-6; Units: /HPF; Status: F Test: MUCUS, URINE; Value: SMALL; Range: NEGATIVE; Status: F Test: HYALINE CAST, URINE AUTO; Value: 0; Range: 0-1; Units: /LPF; Status: F Lab Order: Urine Culture; SPEC'M 11/18/16 10:22 Test: URINE CULTURE; Value: <EXTERNAL COMMENT eCWMed> FULL REPORT IN LAB NOTES (eCW and Medent).; Status: F Test: URINE CULTURE; Value: URINE CULTURE RESULT NO GROWTH; Status: F Lab Order: Cardiac Injury Profile; SPEC'M 11/18/16 09:49 Test: CPK CREATINE PHOSPHOKINASE; Value: 55; Range: 26-192; Units: U/L; Status: F Test: CK-MB VALUE MASS; Value: 1.0; Range: 0.0-3.6; Units: NG/ML; Status: F Test: MB/CK RELATIVE INDEX; Value: 1.81; Range: < OR =4; Status: F Test Note: ; DIAGNOSIS CRITERIA MMB ng/ml Relative Index (RI) NON-AMI < or = 5 N/A MARTINEZ ZONE > 5 < or = 4 AMI > 5 > 4 Lab Order: Troponin; SPEC'M 11/18/16 09:49 Test: TROPONIN I; Value: < 0.02; Range: < 0.10; Units: NG/ML; Status: F Test Note: ; Troponin I Reference Interval for Fonality LOCI: 99th Percentile= 0.00-0.045 ng/ml Risk Stratification: <= 0.10 ng/ml Decreased Risk for Adverse Clinical Events. 0.10-1.50 ng/ml Increased Risk for Adverse Clinical Events. Evaluation of additional criterion and/or repeat testing in 2-6 hours is suggested to rule out myocardial damage. >= 1.50 ng/ml Indicative of Myocardial Injury. Radiology Order: Chest, 2 View (pa\E\lat) Test: Chest, 2 View (pa\E\lat) REASON FOR EXAMINATION: Chest Pain; Clinical: Chest pain .; ; Comparison: 11/02/2015 .; ; Technique: PA and lateral.; ; Findings:; The mediastinum and cardiac silhouette are normal. The lung ngo are clear and; without acute consolidation, effusion, or pneumothorax. The skeletal structures; are intact and normal.; ; Impression:; 1. No acute cardiopulmonary process.; ; ; Signed by; Brooks Aggarwal MD 11/18/2016 10:29 A; Radiology Order: EKG-ADULT Test: EKG-ADULT REASON FOR EXAMINATION: Chest Pain; Stationary ECG Study; 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; : 1985 Requested By: Francesca Mcneal PA-C; Order Number: [id number] Reading MD: Mel English; Measurements; Intervals [place]; Rate: 61 P: 47; [place]: 182 QRS: 18; QRSD: 66 T: 55; QT: 386; QTc: 391; Interpretive Statements; SINUS RHYTHM; NO PRIOR FOR COMPARISON; Electronically Signed On 11-18-2016 19:44:41 EST by Mel English; Radiology Order: CT Chest Angio R/O PE Test: CT Chest Angio R/O PE REASON FOR EXAMINATION: Chest Pain; Clinical: Acute chest pain.; ; Technique: Axial contrast enhanced images from the thoracic inlet to the upper; abdomen using 100 ml Isovue 370 intravenous contrast material with coronal and; sagittal re-formations.; ; Findings: Satisfactory enhancement of the pulmonary vasculature is achieved and; no filling defects are identified to suggest pulmonary embolus. Thoracic aorta; is normal caliber without aneurysm or dissection. Heart and pericardium are; normal. Small areas of bibasilar atelectasis (right greater left) are; appreciated along with small right pleural reaction. No nodule or mass lesion.; No pneumothorax. No adenopathy.; ; Impression:; No evidence for pulmonary embolus.; Mild bibasilar atelectasis and small right pleural reaction.; ; ; Signed by; Brooks Aggarwal MD 11/18/2016 11:51 A; Outcome: 12:30 Discharge ordered by Provider. ef1 12:49 Discharge Assessment: Patient awake, alert and oriented x 3. No cognitive and/or mb9 functional deficits noted. Patient verbalized understanding of disposition instructions. patient administered narcotics - no. The following High Risk Discharge criteria are identified: None. Discharged to home ambulatory, with significant other. Condition: good Condition: stable Condition: improved. Discharge instructions given to patient, Instructed on discharge instructions, follow up and referral plans. medication usage, Demonstrated understanding of instructions, medications, Pt was receptive of discharge instructions/ teaching. Prescriptions given X 2. CT Study completed. Property :Personal belongings accompany Pt. 12:50 Patient left the ED. mb9 Signatures: Dispatcher [employer] EDMS Yoni Lyle, RN RN Jessica Austin RN TIBURCIO dls Nataly Fu, BALLROOM DANCE INSTRUCTOR BALLROOM DANCE INSTRUCTOR jam1 Elyssa Burch, Reg Reg gb Cally Rice, Reg Reg lg Sobeida Monte,RN RN kr3 Francesca Mcneal, PA-C PA-C efCarey Timmons,RN RN dsf Adan SosaRN RN mb9 Tiffany Lehman2 Corrections: (The following items were deleted from the chart) 10:07 10:05 LIPASE+LAB sent. [facility] EDMS 10:07 10:05 AMYLASE+LAB sent. [facility] EDMS Chart Complete MTDD
--- NOTE | 2016-11-20 13:51 | EDDOCDS ---
Physician Documentation [facility] Name: Debbi Saleh Age: 31 yrs Sex: Female : 1985 Arrival Date: 11/18/2016 Time: 09:02 Bed I7 / 29 Private MD: Dmitri Reed Disposition: 11/18/16 12:30 Discharged to Home/Self Care. Impression: Abdominal and pelvic pain - Post-Op, Acute bronchitis - Small Right Pleural Reaction on CT Angio, Atelectasis - Mild Bibasilar Atelectasis on CT angio. - Condition is Stable. - Discharge Instructions: Atelectasis, Adult, Abdominal Pain, Adult, [id number], Acute Bronchitis, Mcka-bz-Cohc. - Prescriptions for Amoxicillin 875 mg Oral Tablet - take 1 tablet by ORAL route every 12 hours for 10 days; 20 tablet. Albuterol Sulfate 90 mcg/actuation Inhalation HFA Aerosol Inhaler - inhale 2 puff by INHALATION route every 4 hours As needed; 1 Inhaler. - Medication Reconciliation, Local Pharmacy Hours form. - Follow up: Dmitri Reed; When: 1 - 2 days; Reason: Recheck today's complaints, Continuance of care. Follow up: [facility]; When: 1 - 2 days; Reason: Recheck today's complaints, Continuance of care. Follow up: Emergency Department; Reason: Worsening of conditions. - Problem is new. - Symptoms have improved. Historical: - Allergies: no known allergies; - Home Meds: 1. Percocet 5-325 mg Oral tab every 4 hours (Last dose: 11/18/2016 06:00) 2. Motrin 800 mg Oral tab every 8 hours (Last dose: 11/18/2016 07:00) 3. Colace 100 mg oral cap 1 cap once daily (Last dose: 11/18/2016 06:00) - PMHx: none; - PSHx: ; - Social history: Smoking status: Patient states was never smoker of tobacco. No barriers to communication noted, The patient speaks fluent Nepali, Speaks appropriately for age. - Family history: No immediate family members are acutely ill. - : The pt / caregiver states he / she is not on anticoagulants. Home medication list is obtained from the patient. - Exposure Risk Screening:: None identified. 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 4 in. (162.56 cm) (R); Pain 0/10; 10:38 BP 122 / 67; Pulse 76; Resp 16; Temp 98.1(O); Pulse Ox 96% on R/A; Pain 0/10; dwg 12:00 BP 110 / 76; Pulse 77; Resp 18; Temp 98.1; Pulse Ox 99% ; Pain 0/10; jam1 09:09 Body Mass Index 26.61 (70.31 kg, 162.56 cm) nb2 MDM: 09:41 IV Saline Lock ordered. ef1 09:43 CBC with Diff Ordered. EDMS 09:43 Complete Comphrensive Metabolic Ordered. EDMS 09:43 D-Dimer Quant Ordered. EDMS 09:49 Financial registration complete. lg 09:52 [facility] [place] Payment Agreement was scanned into [employer] and attached to record. lg 09:56 Chest, 2 View (pa\E\lat) Ordered. EDMS 09:56 ECG WITH READING ER PHYS+CARDIAG ordered. EDMS 10:08 UA Ordered. EDMS 10:08 Urine Culture Ordered. EDMS 10:21 Cardiac Injury Profile Ordered. EDMS 10:21 Troponin Ordered. EDMS 10:45 CBC with Diff Reviewed. ef1 10:45 Complete Comphrensive Metabolic Reviewed. ef1 10:45 D-Dimer Quant Reviewed. ef1 10:45 UA Reviewed. ef1 10:45 Cardiac Injury Profile Reviewed. ef1 10:45 Troponin Reviewed. ef1 10:48 CT Chest Angio R/O PE Ordered. EDMS 12:01 Chest, 2 View (pa\E\lat) Reviewed. ef1 12:34 CT Chest Angio R/O PE Reviewed. ef1 14:42 T-Sheet-- Draft Copy was scanned into [employer] and attached to record. gb 14:42 ECG/EKG was scanned into [employer] and attached to record. gb 14:43 Radiology Report was scanned into [employer] and attached to record. gb Signatures: Dispatcher [employer] EDMS Elyssa Burch, Reg Reg gb Cally Rice, Reg Reg lg Francesca Mcneal, PA-C PA-C ef1 Carey Balderas,RN RN dsf Adan SosaRN RN [id number] The chart was reviewed and I authenticate all verbal orders and agree with the evaluation and treatment provided.Corrections: (The following items were deleted from the chart) 10:07 09:56 AMYLASE+LAB ordered. EDMS EDMS 10:07 09:56 LIPASE+LAB ordered. EDMS EDMS Attachments: 09:52 [facility] [place] Payment Agreement lg 14:42 T-Sheet-- Draft Copy gb 14:42 ECG/EKG gb Chart Complete MTDD
== END 2016-11-18 12:50 | disposition home or self-care (01) ==
LOC: M ED 09:02
DX: J20.9 Acute bronchitis, unspecified (principal); J98.11 Atelectasis
CPT/HCPCS: 36415; 71020; 71275; 80053; 81001; 82550; 82553; 85025; 85379; 87086; 93005; 99284; Q9967